=== PATIENT | female | born 1945 ===

== ENCOUNTER 2016-05-14 16:19 | Inpatient (IN) | payer MEDICAID ==
[2016-05-14 16:34] VITALS: BMI 22.3
[2016-05-14] MEDS ORDERED: Sodium Chloride 0.9% 1,000 ML IV STA (16:51)
--- NOTE | 2016-05-14 16:52 | ED PDOC ---
Arrival/HPI - General Chief Complaint: Dizziness/Lightheaded Time Seen by Provider: 05/14/16 16:49 Historian: Family - History of Present Illness Narrative History of Present Illness (Text): 05/14/16 17:00 Keira Morgan, a 71 year old female, presents to the emergency department complaining of near syncope over the past 3-4 days. She states she feels like passing out and has had frequent falls. She denies head trauma or loss of consciousness. Television Camera Operator reports patient has been shaking in her extremities and complaining of generalized weakness. Patient denies any headache, fevers, nausea, vomiting or any other complaints at this time. PMD: Dr Garvin Time/Duration: < week Symptom Onset: Gradual Symptom Course: Unchanged Activities at Onset: Light Context: Home Associated Symptoms (Text): none Past Medical History - Provider Review Nursing Documentation Reviewed: Yes - Past History Past History: No Previous - Infectious Disease Hx of Infectious Diseases: None - Tetanus Immunization Tetanus Immunization: Unknown - Reproductive Menopause: Yes - Past Medical History Past Medical History: No Previous - Cardiac Hx Cardiac Disorders: Yes Hx Hypertension: Yes - Pulmonary Hx Asthma: Yes - Neurological Other/Comment: abn ct head - HEENT Hx HEENT Disorder: No - Renal Hx Renal Disorder: No - Endocrine/Metabolic Hx Endocrine Disorders: No - Hematological/Oncological Hx Blood Disorders: No - Integumentary Hx Dermatological Disorder: Yes (MULTIPLE BROWN SPOTTING TO RIGHT THIGH AND BUTTOCKS AND BACK.) - Musculoskeletal/Rheumatological Hx Falls: Yes (fell 3x's today) - Gastrointestinal Hx Gastrointestinal Disorders: Yes (CONSTIPATION) - Genitourinary/Gynecological Hx Genitourinary Disorders: No - Psychiatric Hx Psychophysiologic Disorder: No Hx Substance Use: No - Past Surgical History Past Surgical History: No Previous - Surgical History Hx Hysterectomy: Yes (1996) - Anesthesia Hx Anesthesia: No Hx Anesthesia Reactions: No Hx Malignant Hyperthermia: No - Suicidal Assessment Feels Threatened In Home Enviroment: No Family/Social History - Physician Review Nursing Documentation Reviewed: Yes Family/Social History: No Known Family HX Smoking Status: Never Smoked Hx Alcohol Use: No Hx Substance Use: No Hx Substance Use Treatment: No Allergies/Home Meds Allergies/Adverse Reactions: Allergies No Known Allergies Allergy (Verified 07/08/15 14:06) Home Medications: Home Meds Medication Instructions Recorded Confirmed Mometasone/Formoterol [Dulera] 2 puff IH Q12H 05/14/16 05/14/16 Review of Systems - Physician Review All systems were reviewed & negative as marked: Yes Physical Exam - Physical Exam Narrative Physical Exam (Text): - Review of Systems Constitutional: Generalized weakness absent: Fatigue, Weight Change, Fevers Eyes: Normal ENT: Normal Respiratory: Normal absent: SOB, Cough, Sputum Cardiovascular: Near syncope absent: Chest pain, Palpitations, syncope Gastrointestinal: Normal absent: Abdominal pain, Diarrhea, Nausea, Vomiting Genitourinary: Normal. absent: Dysuria, Frequency, Hematuria Musculoskeletal: Shaking extremities. absent: Arthralgias, Back Pain, Neck Pain Skin: Normal Neurological: Normal absent: Focal Weakness Endocrine: Normal Hemo/Lymphatic: Normal Psychiatric: Normal - Physical exam Patient appears age appropriate, speaking full sentences without difficulty Head atraumatic. No nasal bone deformity or tenderness, no facial or jaw pain/ swelling. No neck midline tenderness, thoracic and lumbar spine with no midline tenderness. Pt moving b/l upper and lower extremities without difficulty, 5/5 strength, with full active and passive ROM. Distal neurovasc fully intact. Abd soft/nt/ng, no hematomas, no peritoneal signs. Neg. pelvic rock. - Systems Exam Head: Present: Atraumatic, Normocephalic Pupils: Present: PERRL Extraocular Muscles: Present: EOMI Conjunctiva: Present: Normal Mouth: Present: Moist Mucous Membranes Neck: Present: Normal Range of Motion. No: MIDLINE TENDERNESS, Paraspinal Tenderness Respiratory/Chest: Present: Clear to Auscultation, Good Air Exchange. No: Respiratory Distress, Accessory Muscle Use, Tachypneic Cardiovascular: Present: Regular Rate and Rhythm, Normal S1, S2, Peripheral Pulses Present. No: Murmurs Abdomen: Present: Normal Bowel Sounds, No: Tenderness, Peritoneal Signs, Rebound, Guarding, Distention Back: Present: Normal Inspection. No: Midline Tenderness, Paraspinal Tenderness Upper Extremity: Present: Normal Inspection. No: Cyanosis, Edema Lower Extremity: Present: Normal Inspection. No: Edema Neurological: Present: GCS=15, Speech Normal, cranial nerves II through XII fully intact with no cerebellar abnormality, neuro-sensory fully intact. No focal neurological deficits. Skin: Present: Warm, Dry, Normal Color. No: Rashes Lymphatic: Present: OX3, NI, NC Psychiatric: Present: Alert, Oriented x 3, Normal Insight, Normal Concentration 05/14/16 18:00 Vital Signs Reviewed: Yes Vital Signs Temp Pulse Resp BP Pulse Ox 05/14/16 20:44 98 F 79 19 136/96 H 05/14/16 20:27 75 16 143/87 97 05/14/16 19:14 79 19 136/96 H 99 05/14/16 19:00 136/96 H 05/14/16 17:45 98 F 87 19 143/91 H 98 05/14/16 16:34 99.2 F 78 16 110/65 92 L Temperature: Afebrile Blood Pressure: Normal Pulse: Regular Respiratory Rate: Normal Appearance: Positive for: Well-Appearing, Non-Toxic, Comfortable Pain Distress: None Mental Status: Positive for: Alert and Oriented X 3 Medical Decision Making ED Course and Treatment: 05/14/16 17:06 Impression: 71 year old female presents to emergency department complaining of near syncope over the past few days. On physical exam, patient has no acute findings. Differential Diagnosis included but are not limited to: near syncope vs dehydration Plan: -- Head CT w/o contrast -- EKG -- Labs -- IV Fluids -- Urinalysis -- Reassess and disposition Prior Visits: On 03/21/16 patient was discharged after being admitted for tremors and falls. Progress Notes: EKG shows NSR at [address]-segment elevations, normal intervals. Interpreted by me. Chest X-ray Patient Ambassador : Alvaro Escobar MD IMPRESSION: Mild vascular congestion. X-ray read noted, BNP ordered. CT Head w/o contrast IMPRESSION: No acute intracranial abnormality Dictated and Authenticated by: Vandana Burns MD 05/14/16 19:27 BNP elevated troponin 0.09. Pt denies cp asa ordered dw and signed out to Dr. Pickens, accepted admission to tele pt in no distress aware of and agrees with plan Television Camera Operator translating encounter per pt request - Lab Interpretations Microbiology Results: Microbiology Results 05/14/16 16:45 Blood-Venous Blood Culture - Preliminary NO GROWTH AFTER 4 DAYS 05/14/16 16:50 Blood-Venous Blood Culture - Preliminary NO GROWTH AFTER 4 DAYS 05/14/16 18:10 Urine Urine Culture - Final Gram Positive Cocci Lab Results: 05/14/16 16:50 04/08/17 16:50 Lab Results 05/14/16 18:10: Urine Color Yellow, Urine Appearance Slight-cloudy, Urine pH 6.0 , Ur Specific [place] 1.025, Urine Protein 30 H, Urine Glucose (UA) Negative, Urine Ketones Negative, Urine Blood Small H, Urine Nitrate Negative, Urine Bilirubin Negative, Urine Urobilinogen 0.2, Ur Leukocyte Esterase Trace H, Urine RBC 2 - 5, Urine WBC 1 - 3, Ur Epithelial Cells 1 - 3, Urine Bacteria Few 05/14/16 16:50: WBC 7.3, RBC 5.00, Hgb 12.4, Hct 41.9, MCV 83.8, MCH 24.8 L, MCHC 29.6 L, RDW 14.8 H, Plt Count 222, MPV 10.7, Gran % 66.8, Lymph % (Auto) 23.4, [place] % (Auto) 9.3 H, Eos % (Auto) 0.4 L, Baso % (Auto) 0.1, Gran # 4.88, Lymph # 1.7, [place] # 0.7 H, Eos # 0.0, Baso # 0.01, PT 11.7, INR 1.08, APTT 25.2 , Sodium 136, Potassium 5.2 H, Chloride 91 L, Carbon Dioxide 45 H, Anion Gap 5 L , BUN 19, Creatinine 0.8, Est GFR ( Amer) > 60, Est GFR (Non-Af Amer) > 60, Random Glucose 96, Calcium 8.4, Phosphorus 3.7, Magnesium 2.1, Total Bilirubin 0.4, AST 258 H, ALT 276 H, Alkaline Phosphatase 85, Lactate Dehydrogenase 1051 H, Total Creatine Kinase 41, Troponin I 0.09 D, NT-Pro-B Natriuret Pep 3820 H, Total Protein 7.4, Albumin 3.8, Globulin 3.7, Albumin/ Globulin Ratio 1.0 L - RAD Interpretation Radiology Orders: 05/14/16 16:51 HEAD W/O CONTRAST [CT] Stat CHEST PORTABLE [RAD] Stat - EKG Interpretation Interpreted by ED Physician: Yes Type: 12 lead EKG - Medication Orders Current Medication Orders: Discontinued Medications Albuterol/Ipratropium (Duoneb 3 Mg/0.5 Mg (3 Ml) Ud) 3 ml IH Q6 PRN PRN Reason: Shortness of Breath Stop: 05/15/16 12:01 Albuterol/Ipratropium (Duoneb 3 Mg/0.5 Mg (3 Ml) Ud) 3 ml IH [id number] [facility] Last Admin: 05/18/16 15:35 Dose: 3 ML Aspirin (Aspirin Chewable) 324 mg PO STAT STA Stop: 05/14/16 19:12 Last Admin: 05/14/16 19:31 Dose: 324 MG Aspirin (Aspirin Chewable) 81 mg PO DAILY [facility] Last Admin: 05/18/16 10:20 Dose: 81 MG Benzonatate (Tessalon Perles) 100 mg PO TID [facility] Last Admin: 05/18/16 17:39 Dose: 100 MG Fluticasone Propionate (Flonase) 1 actuation NS BID [facility] Last Admin: 05/18/16 17:40 Dose: 1 SPR Furosemide (Lasix) 40 mg IVP STAT STA Stop: 05/14/16 18:48 Last Admin: 05/14/16 19:00 Dose: 40 MG MAR Blood Pressure Document 05/14/16 19:00 GMI (Rec: 05/14/16 19:05 GMI [id number]) Blood Pressure Blood Pressure (100/60-150/90) 136/96 IVP Administration Document 05/14/16 19:00 GMI (Rec: 05/14/16 19:05 GMI [id number]) Charges for Administration # of IVP Administrations 1 Sodium Chloride (Sodium Chloride 0.9%) 1,000 mls @ 1,000 mls/hr IV .Q1H STA Stop: 05/14/16 17:50 Last Admin: 05/14/16 17:37 Dose: 1,000 MLS/HR eMAR Start Stop Document 05/14/16 17:37 GMI (Rec: 05/14/16 17:37 GMI [id number]) Intravenous Solution Start Date 05/14/16 Start Time 17:15 Sodium Chloride (Sodium Chloride 0.9%) 1,000 mls @ 100 mls/hr IV .Q10H [facility] Last Admin: 05/15/16 07:30 Dose: 100 MLS/HR eMAR Start Stop Document 05/15/16 07:30 ANE (Rec: 05/15/16 08:38 ANE [id number]) Intravenous Solution Start Date 05/15/16 Start Time 07:30 Sodium Chloride (Sodium Chloride 0.9%) 1,000 mls @ 150 mls/hr IV .Q6H40M [facility] Last Admin: 05/16/16 01:00 Dose: 150 MLS/HR eMAR Start Stop Document 05/16/16 01:00 CDE (Rec: 05/16/16 06:39 CDE [id number]) Intravenous Solution Start Date 05/16/16 Start Time 01:00 Levofloxacin (Levaquin) 750 mg PO DAILY [facility] Last Admin: 05/17/16 09:49 Dose: 750 MG Levofloxacin (Levaquin) 750 mg PO ONCE ONE Stop: 05/16/16 13:51 Last Admin: 05/16/16 14:13 Dose: 750 MG Pantoprazole Sodium (Protonix Inj) 40 mg IVP DAILY [facility] Last Admin: 05/16/16 09:33 Dose: 40 MG IVP Administration Document 05/16/16 09:33 RDS (Rec: 05/16/16 09:34 RDS [id number]) Charges for Administration # of IVP Administrations 1 Pantoprazole Sodium (Protonix Ec Tab) 40 mg PO ACB [facility] Last Admin: 05/18/16 10:20 Dose: 40 MG Pneumococcal Polyvalent Vaccine (Pneumovax 23 Vaccine) 0.5 ml IM .ONCE ONE Stop: 05/14/16 20:56 Primidone (Mysoline) 50 mg PO HS [facility] Last Admin: 05/17/16 21:45 Dose: 50 MG Sodium Polystyrene Sulfonate (Kayexalate Oral Susp) 30 gm PO STAT STA Stop: 05/14/16 20:13 Last Admin: 05/14/16 20:24 Dose: 30 GM Tetanus/Reduced Diphtheria/Acell Pertussis (Boostrix Vaccine Inj) 0.5 ml IM .ONCE ONE Stop: 05/14/16 20:29 Last Admin: 05/15/16 00:28 Dose: 0.5 ML MAR Immunization Data Document 05/15/16 00:28 KETTY (Rec: 05/15/16 00:34 [place] [facility] [id number] Immunization Data Opt out of sending immunization data to Yes respository? Vaccine Lot Number [id number] - [employer]hem[employer] Statement The provider has reviewed the documentation as recorded by the [employer] [place] training under Carlos Call All medical record entries made by the [place] were at my direction and personally dictated by me. I have reviewed the chart and agree that the record accurately reflects my personal performance of the history, physical exam, medical decision making, and the department course for this patient. I have also personally directed, reviewed, and agree with the discharge instructions and disposition. Disposition/Present on Arrival - Present on Arrival Any Indicators Present on Arrival: No History of DVT/PE: No History of Uncontrolled Diabetes: No Urinary Catheter: No History of Decub. Ulcer: No History Surgical Site Infection Following: None - Disposition Have Diagnosis and Disposition been Completed?: Yes Diagnosis: CHF (congestive heart failure) Disposition: HOSPITALIZED Disposition Time: 19:28 Patient Plan: Admission Patient Problems: Current Active Problems Problem Status Diagnosed Intractable back pain Acute Multiple transverse process fractures Acute Tremor Acute Unsteady gait Acute Condition: GOOD
[2016-05-14 17:05] LABS: ADD MANUAL DIFF? NO
[2016-05-14 17:09] LABS: BASO # 0.01 K/mm3 (0.0-2.0); BASO % 0.1 % (0.0-3.0); EOS % 0.4 % (1.5-5.0); GRAN # 4.88 (1.4-6.5); GRAN % 66.8 % (50.0-68.0); HEMATOCRIT 41.9 % (36.0-48.0); LYMPH # 1.7 (1.2-3.4); LYMPH % 23.4 % (22.0-35.0); MEAN CELL VOLUME 83.8 fL (80.0-105.0); MEAN CORPUSCULAR HEMOGLOBIN 24.8 pg (25.0-35.0); MEAN CORPUSCULAR HGB CONC 29.6 g/dl (31.0-37.0); MEAN PLATELET VOLUME 10.7 fl (7.0-11.0); MONO # 0.7 (0.1-0.6); MONO % 9.3 % (1.0-6.0); PLATELET COUNT 222 10^3/uL (120.0-450.0); RED CELL DISTRIBUTION WIDTH 14.8 % (11.5-14.5); WHITE BLOOD COUNT 7.3 10^3/ul (4.5-11.0)
[2016-05-14 17:20] LABS: INR 1.08 (0.93-1.08); PARTIAL THROMBOPLASTIN TIME 25.2 Seconds (23.7-30.8)
--- NOTE | 2016-05-14 17:27 | RAD ---
HISTORY: cough COMPARISON: 03/19/2016 FINDINGS: LUNGS: No focal consolidation PLEURA: No significant pleural effusion identified, no pneumothorax apparent. CARDIOVASCULAR: There is some vascular congestion right greater than left. The heart is normal in size OSSEOUS STRUCTURES: No significant abnormalities. VISUALIZED UPPER ABDOMEN: Normal. OTHER FINDINGS: None. IMPRESSION: Mild vascular congestion.
[2016-05-14 17:28] LABS: ALKALINE PHOSPHATASE 85 U/L (38-133); ALT/SGPT 276 U/L (7-56); AST/SGOT 258 U/L (15-39); BILIRUBIN,TOTAL 0.4 mg/dL (0.2-1.3); BLOOD UREA NITROGEN 19 mg/dL (7-21); CALCIUM 8.4 mg/dL (8.4-10.5); CHLORIDE 91 mmol/L (98-107); GFR AFRICAN-AMERICAN > 60; GLUCOSE,RANDOM 96 mg/dL (70-110); POTASSIUM 5.2 mmol/L (3.6-5.0); SODIUM 136 mmol/L (132-148); TOTAL PROTEIN 7.4 g/dL (5.8-8.3)
[2016-05-14 17:38] LABS: TROPONIN I 0.09 ng/mL
[2016-05-14 17:39] LABS: CARBON DIOXIDE 45 mmol/L (21-33)
[2016-05-14 18:19] LABS: URINE BILIRUBIN NEGATIVE (NEGATIVE); URINE BLOOD SMALL (NEGATIVE); URINE GLUCOSE (UA) NEGATIVE (NEGATIVE); URINE KETONE NEGATIVE (NEGATIVE); URINE LEUKOCYTE ESTERASE TRACE Leu/uL (NEGATIVE); URINE PROTEIN 30 mg/dL (<30 mg/dL); URINE UROBILINOGEN 0.2 E.U./dL (<1 E.U./dL)
[2016-05-14 18:39] LABS: URINE APPEARANCE SLIGHT-CLOUDY (CLEAR); URINE COLOR YELLOW (YELLOW)
[2016-05-14 18:40] LABS: URINE BACTERIA FEW (NEG)
--- NOTE | 2016-05-14 19:02 | CT ---
EXAM: CT Head Without Intravenous Contrast CLINICAL HISTORY: 71 years old, female; Signs and symptoms; Syncope and collapse; Additional info: Near syncope TECHNIQUE: Axial computed tomography images of the head/brain without intravenous contrast. This CT exam was performed using one or more of the following dose reduction techniques: automated exposure control, adjustment of the mA and/or kV according to patient size, and/or use of iterative reconstruction technique. EXAM DATE/TIME: 05/14/2016 4:51 PM COMPARISON: CT - HEAD W/O CONTRAST 03/19/2016 12:59:22 PM FINDINGS: Brain: Ventricles are normal in size and configuration. There is no midline shift. There are no intra-axial or extra-axial mass lesions or areas of hemorrhage. There are no abnormal fluid collections. Angel-white differentiation is maintained. Ventricles: See above. Bones: Cranial vault is intact. Soft tissues: unremarkable Sinuses: There is no acute sinusitis. Ears and mastoids: Middle ears and mastoids are unremarkable. There is streak artifact from earrings Orbits: Orbital contents are unremarkable. IMPRESSION: No acute intracranial abnormality
[2016-05-14] MEDS ORDERED: Albuterol-Ipratrop 3 mg / 0.5 (3 ml) UD IH PRN (20:05)
[2016-05-14] MEDS ORDERED: Sod Polystyrene Sulf 15 gm/60 ml Oral Susp PO STA (20:12)
--- NOTE | 2016-05-14 20:18 | CP.PCM.HP ---
<Jakub Mcgowan - Last Filed: 05/14/16 20:33> History of Present Illness - History of Present Illness History of Present Illness: This is a 71 yo female with past medical hx of back pain, gait instability, essential tremor, asthma presenting with near syncope and fall. Pt was admitted in March for similar issue. She frequently feels "shaky" upon standing and says this has been going on for a year. She does not say she feels dizzy or lightheaded. She says she fell at home twice today. She attributes this to not eating enough. She experience no aura or prodrome prior to falling. She denies hitting her head or LOC. She denies seizure activity or tongue biting. She denies bowel or bladder incontinence. She says the shakiness and unsteadiness comes and goes. She reports some chest pain, substernal, no radiation, that developed while she was lying in bed in ER. It is gone at time of evaluation. She reports a cough with white phlegm that has been going on for a while. She was given abx but they have not helped. Denies shortness of breath, urinary sx, blood in BMs. PMH: Asthma, back pain, gait instability, essential tremor PSH: Hysterectomy Allergies: NKDA FH: Non contributory Social hx: Denies smoking, drinking, drug use. Lives in [place]. From [place]. Lives with sister and grandson. Does not use cane and walker and able to take care of herself and perform ADLs. Present on Admission - Present on Admission Any Indicators Present on Admission: No History of DVT/PE: No History of Uncontrolled Diabetes: No Urinary Catheter: No Decubitus Ulcer Present: No Review of Systems - Review of Systems All systems: reviewed and no additional remarkable complaints except Review of Systems: Negative except as stated in HPI Past Patient History - Infectious Disease Hx of Infectious Diseases: None - Tetanus Immunizations Tetanus Immunization: Unknown - Past Medical History & Family History Past Medical History?: Yes Past Family History: Reviewed and not pertinent - Past Social History Smoking Status: Never Smoked Chewing Tobacco Use: No Cigar Use: No Alcohol: None Drugs: Denies Home Situation {Lives}: With Family Domestic Violence: Negative - CARDIAC Hx Cardiac Disorders: Yes Hx Hypertension: Yes - PULMONARY Hx Asthma: Yes - NEUROLOGICAL Other/Comment: abn ct head - HEENT Hx HEENT Problems: No - RENAL Hx Chronic Kidney Disease: No - ENDOCRINE/METABOLIC Hx Endocrine Disorders: No - HEMATOLOGICAL/ONCOLOGICAL Hx Blood Disorders: No - INTEGUMENTARY Hx Dermatological Problems: Yes (MULTIPLE BROWN SPOTTING TO RIGHT THIGH AND BUTTOCKS AND BACK.) - MUSCULOSKELETAL/RHEUMATOLOGICAL Hx Falls: Yes (fell 3x's today) - GASTROINTESTINAL Hx Gastrointestinal Disorders: Yes (CONSTIPATION) - GENITOURINARY/GYNECOLOGICAL Hx Genitourinary Disorders: No - PSYCHIATRIC Hx Psychophysiologic Disorder: No Hx Substance Use: No - SURGICAL HISTORY Hx Hysterectomy: Yes (1996) - ANESTHESIA Hx Anesthesia: No Hx Anesthesia Reactions: No Hx Malignant Hyperthermia: No Meds Allergies/Adverse Reactions: Allergies Allergy/AdvReac Type Severity Reaction Status Date / Time No Known Allergies Allergy Verified 07/08/15 14:06 Physical Exam - Constitutional Appears: Non-toxic, No Acute Distress - Head Exam Head Exam: ATRAUMATIC, NORMAL INSPECTION, NORMOCEPHALIC - Eye Exam Eye Exam: EOMI - ENT Exam ENT Exam: Mucous Membranes Moist - Neck Exam Neck exam: Positive for: Normal Inspection - Respiratory Exam Respiratory Exam: absent: Accessory Muscle Use, Respiratory Distress - Cardiovascular Exam Cardiovascular Exam: REGULAR RHYTHM, +S1, +S2 - GI/Abdominal Exam GI & Abdominal Exam: Normal Bowel Sounds, Soft. absent: Tenderness - Extremities Exam Extremities exam: Positive for: normal inspection - Neurological Exam Neurological exam: Alert, CN II-XII Intact, Oriented x3 - Psychiatric Exam Psychiatric exam: Normal Affect, Normal Mood - Skin Skin Exam: Dry, Intact, Normal Color, Warm Results - Vital Signs Recent Vital Signs: Last Vital Signs Temp 98 F 05/14/16 17:45 Pulse 79 05/14/16 19:14 Resp 19 05/14/16 19:14 BP 136/96 H 05/14/16 19:14 Pulse Ox 99 05/14/16 19:14 - Labs Result Diagrams: 05/14/16 16:50 05/14/16 16:50 Assessment & Plan - Assessment and Plan (Free Text) Assessment: This is a 71 yo female with past medical hx of back pain, gait instability, asthma presenting with fall and near syncope. 1. Near syncope -EKG shows NSR -repeat EKG in am -1st trop indeterminate, serial cardiac enzymes -ASA 81 daily -CXR shows some vascular congestion -lasix 40 daily -blood/urine cultures -urine drug screen -Mg pending -phos pending -echo in Mar shows normal LV fx -carotid dopplers pending -cardio/neuro consultations -head CT negative -orthostatic vital signs -PT evaluation -high risk fall precautions 2. Hx of essential tremor -continue primodone -neuro consultation 3. Transaminitis -trend liver enzymes -hepatitis panel 4. hx of asthma -duonebs prn 5. hx of cough -continue flonase -continue tessalon perles 6. hyperkalemia -we will give kayexalate -no ekg changes 7. GI/DVT ppx -protonix daily -SCDs -to be discussed with Dr. Pickens <Germán Pickens - Last Filed: 05/15/16 02:18> Results - Vital Signs Recent Vital Signs: Last Vital Signs Temp 97.8 F 05/15/16 00:01 Pulse 69 05/15/16 00:01 Resp 20 05/15/16 00:01 BP 98/56 L 05/15/16 00:01 Pulse Ox 97 05/15/16 00:01 - Labs Result Diagrams: 05/14/16 16:50 05/14/16 16:50 Labs: Laboratory Results - last 24 hr 05/14/16 05/15/16 22:00 00:50 Troponin I 0.09 Influenza Typ A,B (EIA) Negative for flu a/b Attending/Attestation - Attestation I have personally seen and examined this patient.: Yes I have fully participated in the care of the patient.: Yes I have reviewed all pertinent clinical information: Yes Notes (Text): 05/15/16 02:17 Patient was seen when she was in room # 864 -01. Agree with history , physical examination, assessment and plan.
[2016-05-14] MEDS ORDERED: TDAP Vaccine 0.5 mL Syr IM ONE (20:28)
[2016-05-14 20:34] LABS: MAGNESIUM 2.1 mg/dL (1.7-2.2); PHOSPHOROUS 3.7 mg/dL (2.5-4.5)
--- NOTE | 2016-05-14 20:53 | CT ---
EXAM: CT Head Without Intravenous Contrast CLINICAL HISTORY: 71 years old, female; Injury or trauma; Fall; Initial encounter; Concussion / head injury TECHNIQUE: Axial computed tomography images of the head/brain without intravenous contrast. This CT exam was performed using one or more of the following dose reduction techniques: automated exposure control, adjustment of the mA and/or kV according to patient size, and/or use of iterative reconstruction technique. EXAM DATE/TIME: 05/14/2016 8:23 PM COMPARISON: CT - HEAD W/O CONTRAST 05/14/2016 6:09:18 PM FINDINGS: Brain: Ventricles are normal in size and configuration. There is no midline shift. There are no intra-axial or extra-axial mass lesions or areas of hemorrhage. There are no abnormal fluid collections. Angel-white differentiation is maintained. Ventricles: See above. Bones: Cranial vault is intact. Soft tissues: unremarkable Sinuses: There is no acute sinusitis. Ears and mastoids: Middle ears and mastoids are unremarkable. There is streak artifact from earrings Orbits: Orbital contents are unremarkable. IMPRESSION: No acute intracranial abnormality
[2016-05-14] MEDS ORDERED: Pneumococcal 23-Valent Vaccine IM ONE (20:55)
[2016-05-15] MEDS ORDERED: Sodium Chloride 0.9% 1,000 ML IV SCH (07:30)
--- NOTE | 2016-05-15 08:58 | RAD ---
PROCEDURE: Left Knee Radiographs. HISTORY: Pain. COMPARISON: None. FINDINGS: BONES: Normal. No fracture. JOINTS: Normal. No osteoarthritis. JOINT EFFUSION: None. OTHER FINDINGS: None. IMPRESSION: Normal radiographs of the left knee.
--- NOTE | 2016-05-15 09:03 | CP.PCM.CON ---
<Aman Chiu - Last Filed: 05/15/16 09:06> History of Present Illness - History of Present Illness History of Present Illness: PGY4 GI Fellow Consult Note Patient is a 71yo female with PMHx significant for multiple Lumbar spine fractures (L2-4), multiple falls who presented to the ED following a fall at home. The patient is not able to describe this event in great detail. States that she felt unsteady, that her whole body felt "shaky" and that she subsequently fell. She denies hitting her head, LOC/confusion following fall and had no preceding symptoms such as dizziness/lightheadedness/flushing/nausea/ vomiting. She cannot recall exactly what she was doing when she did fall but denies having used the restroom or standing from sitting/laying prior to the event. Reviewing her EMR, it is noted that she has had numerous falls previously and prior brain imaging has been relatively unremarkable. Of note, she is on Primidone at home, an antiseizure medication. Our service has been consulted as she has abnormal LFTs for the first time. She denies any EtOH use and is unsure about any prior history of hepatitis. She denies any known liver disease. PMHx: Denies, though review of home medications seem to suggest Seizure d/o and COPD PSHx: Denies FHx: Denies Social: Denies tobacco, EtOH or illicit drug use Endo: Admits to colonoscopy >10 years ago, unknown results Review of Systems - Constitutional Constitutional: Frequent Falls. absent: Anorexia, Chills - EENT Eyes: absent: Change in Vision Nose/Mouth/Throat: absent: Sore Throat - Cardiovascular Cardiovascular: absent: Chest Pain, Dyspnea, Dyspnea on Exertion - Respiratory Respiratory: absent: Cough, Dyspnea, Change in Mucous Color - Gastrointestinal Gastrointestinal: absent: Abdominal Pain, Constipation, Cramping, Diarrhea, Dyspepsia, Dysphagia, Hematemesis, Hematochezia, Loose Stools, Nausea, Vomiting - Genitourinary Genitourinary: absent: Dysuria, Urinary Frequency, Urinary Urgency - Musculoskeletal Musculoskeletal: absent: Back Pain, Neck Pain - Integumentary Integumentary: absent: New Lesions, Rash - Neurological Neurological: absent: Dizziness, Numbness, Focal Weakness - Psychiatric Psychiatric: absent: Anxiety, Depression - Endocrine Endocrine: absent: Polydipsia, Polyphagia, Polyuria - Hematologic/Lymphatic Hematologic: absent: Easy Bleeding, Easy Bruising, Lymphadenopathy Past Patient History - Infectious Disease Hx of Infectious Diseases: None - Tetanus Immunizations Tetanus Immunization: Unknown - Past Medical History & Family History Past Medical History?: Yes Past Family History: Reviewed and not pertinent - Past Social History Smoking Status: Never Smoked - CARDIAC Hx Cardiac Disorders: Yes Hx Hypertension: Yes - PULMONARY Hx Asthma: Yes - NEUROLOGICAL Other/Comment: abn ct head - HEENT Hx HEENT Problems: No - RENAL Hx Chronic Kidney Disease: No - ENDOCRINE/METABOLIC Hx Endocrine Disorders: No - HEMATOLOGICAL/ONCOLOGICAL Hx Blood Disorders: No - INTEGUMENTARY Hx Dermatological Problems: Yes (MULTIPLE BROWN SPOTTING TO RIGHT THIGH AND BUTTOCKS AND BACK.) - MUSCULOSKELETAL/RHEUMATOLOGICAL Hx Falls: Yes (fell 3x's today) - GASTROINTESTINAL Hx Gastrointestinal Disorders: Yes (CONSTIPATION) - GENITOURINARY/GYNECOLOGICAL Hx Genitourinary Disorders: No - PSYCHIATRIC Hx Psychophysiologic Disorder: No Hx Substance Use: No - SURGICAL HISTORY Hx Hysterectomy: Yes (1996) - ANESTHESIA Hx Anesthesia: No Hx Anesthesia Reactions: No Hx Malignant Hyperthermia: No Meds Allergies/Adverse Reactions: Allergies Allergy/AdvReac Type Severity Reaction Status Date / Time No Known Allergies Allergy Verified 07/08/15 14:06 - Medications Medications: Current Medications Albuterol/Ipratropium (Duoneb 3 Mg/0.5 Mg (3 Ml) Ud) 3 ml IH Q6 PRN PRN Reason: Shortness of Breath Stop: 05/15/16 12:01 Aspirin (Aspirin Chewable) 81 mg PO DAILY [facility] Benzonatate (Tessalon Perles) 100 mg PO TID [facility] Fluticasone Propionate (Flonase) 1 actuation NS BID [facility] Sodium Chloride (Sodium Chloride 0.9%) 1,000 mls @ 100 mls/hr IV .Q10H [facility] Last Admin: 05/15/16 07:30 Dose: 100 mls/hr Pantoprazole Sodium (Protonix Inj) 40 mg IVP DAILY [facility] Primidone (Mysoline) 50 mg PO HS [facility] Last Admin: 05/15/16 00:37 Dose: 50 mg Physical Exam - Constitutional Appears: Non-toxic, No Acute Distress - Eye Exam Eye Exam: EOMI, PERRL - ENT Exam ENT Exam: Mucous Membranes Moist - Respiratory Exam Respiratory Exam: Clear to Auscultation Bilateral. absent: Rales, Rhonchi, Wheezes - Cardiovascular Exam Cardiovascular Exam: RRR, +S1, +S2 - GI/Abdominal Exam GI & Abdominal Exam: Normal Bowel Sounds, Soft. absent: Distended, Firm, Guarding, Rigid, Tenderness - Extremities Exam Extremities exam: Positive for: normal inspection. Negative for: pedal edema - Neurological Exam Neurological exam: Alert, Oriented x3 - Psychiatric Exam Psychiatric exam: Normal Affect, Normal Mood - Skin Skin Exam: Dry, Warm Results - Vital Signs Recent Vital Signs: Last Vital Signs Temp 97.9 F 05/15/16 05:37 Pulse 72 05/15/16 05:37 Resp 20 05/15/16 05:37 BP 112/58 L 05/15/16 05:37 Pulse Ox 99 05/15/16 05:37 - Labs Result Diagrams: 05/14/16 16:50 05/14/16 16:50 Labs: Laboratory Results - last 24 hr 05/14/16 05/15/16 22:00 00:50 Troponin I 0.09 Influenza Typ A,B (EIA) Negative for flu a/b Assessment & Plan - Assessment and Plan (Free Text) Assessment: Patient is a 71yo female with PMHx significant for multiple Lumbar spine fractures (L2-4), multiple falls who presented to the ED following a fall at home. Our service has been consulted for abnormal LFTs. -Transaminasemia -Frequent falls Plan: -U/S abdomen -Hepatitis serologies -Autoimmune work up: TRINITY, AMA, SMA -Suspect elevation could be related to transient hypotension preceding/causing fall however given history of seizure disorder and patient's description of "shaking", consider elevations 2/2 seizure activity/muscle damage as LDH elevated as well -Consider neurology evaluation given frequent falls and h/o unsteady gait - CT head reviewed; pt may benefit from EEG or further neurologic work up -Fall precautions - Date & Time Date: 05/15/16 Time: 08:10 <Earle Walsh MD - Last Filed: 05/15/16 18:18> Meds - Medications Medications: Current Medications Aspirin (Aspirin Chewable) 81 mg PO DAILY [facility] Last Admin: 05/15/16 10:31 Dose: 81 mg Benzonatate (Tessalon Perles) 100 mg PO TID [facility] Last Admin: 04/09/17 17:36 Dose: 100 mg Fluticasone Propionate (Flonase) 1 actuation NS BID [facility] Last Admin: 05/15/16 17:33 Dose: 1 spr Sodium Chloride (Sodium Chloride 0.9%) 1,000 mls @ 150 mls/hr IV .Q6H40M [facility] Last Admin: 05/15/16 17:34 Dose: 150 mls/hr Pantoprazole Sodium (Protonix Inj) 40 mg IVP DAILY [facility] Last Admin: 05/15/16 10:34 Dose: 40 mg Primidone (Mysoline) 50 mg PO HS [facility] Last Admin: 05/15/16 00:37 Dose: 50 mg Results - Vital Signs Recent Vital Signs: Last Vital Signs Temp 98 F 05/15/16 12:00 Pulse 74 05/15/16 14:00 Resp 20 05/15/16 12:00 BP 104/62 05/15/16 12:00 Pulse Ox 99 05/15/16 05:37 - Labs Result Diagrams: 05/14/16 16:50 05/15/16 09:50 Labs: Laboratory Results - last 24 hr 05/14/16 05/15/16 05/15/16 22:00 00:50 09:05 PT 11.5 INR 1.06 pCO2 pO2 HCO3 ABG pH ABG Total CO2 ABG O2 Saturation ABG O2 Content ABG Base Excess ABG Hemoglobin ABG Carboxyhemoglobin POC ABG HHb (Measured) ABG Methemoglobin ABG O2 Capacity Hgb O2 Saturation FiO2 Sodium Potassium Chloride Carbon Dioxide Anion Gap BUN Creatinine Est GFR ( Amer) Est GFR (Non-Af Amer) Random Glucose Calcium Total Bilirubin AST ALT Alkaline Phosphatase Troponin I 0.09 Total Protein Albumin Globulin Albumin/Globulin Ratio Influenza Typ A,B (EIA) Negative for flu a/b 05/15/16 05/15/16 09:50 15:55 PT INR pCO2 87 H* pO2 73.0 L HCO3 49.1 H* ABG pH 7.36 ABG Total CO2 51.8 H ABG O2 Saturation 97.0 ABG O2 Content 15.1 ABG Base Excess 19.6 H ABG Hemoglobin 11.4 L ABG Carboxyhemoglobin 2.0 H POC ABG HHb (Measured) 2.9 ABG Methemoglobin 1.1 ABG O2 Capacity 15.6 L Hgb O2 Saturation 94.0 L FiO2 32.0 Sodium 139 Potassium 3.6 Chloride 87 L Carbon Dioxide 51 H Anion Gap 5 L BUN 18 Creatinine 0.6 Est GFR ( Amer) > 60 Est GFR (Non-Af Amer) > 60 Random Glucose 96 Calcium 7.8 L Total Bilirubin 0.6 AST 165 H ALT 238 H Alkaline Phosphatase 75 Troponin I 0.07 D Total Protein 6.8 Albumin 3.5 Globulin 3.3 Albumin/Globulin Ratio 1.1 Influenza Typ A,B (EIA) Attending/Attestation - Attestation I have personally seen and examined this patient.: Yes I have fully participated in the care of the patient.: Yes I have reviewed all pertinent clinical information: Yes Notes (Text): 05/15/16 18:12 Patient seen and examined at bedside. This is a 71 yr old female with PMHx significant for multiple Lumbar spine fractures (L2-4), multiple falls who presented to the ED following a fall at home. Our service has been consulted for abnormal LFT mostly transminases which are down trending. Likely muscle injury with leaking of liver enzymes with LDH. Send myoglobin and CPK Neurology evaluation noted. Fall precautions
[2016-05-15 10:05] LABS: ALB/GLOB RATIO 1.1 (1.1-1.8); ALKALINE PHOSPHATASE 75 U/L (38-133); ALT/SGPT 238 U/L (7-56); AST/SGOT 165 U/L (15-39); BILIRUBIN,TOTAL 0.6 mg/dL (0.2-1.3); BLOOD UREA NITROGEN 18 mg/dL (7-21); CALCIUM 7.8 mg/dL (8.4-10.5); CHLORIDE 87 mmol/L (98-107); GFR AFRICAN-AMERICAN > 60; GLUCOSE,RANDOM 96 mg/dL (70-110); POTASSIUM 3.6 mmol/L (3.6-5.0); SODIUM 139 mmol/L (132-148); TOTAL PROTEIN 6.8 g/dL (5.8-8.3)
[2016-05-15 10:07] LABS: INR 1.06 (0.93-1.08)
[2016-05-15 10:16] LABS: TROPONIN I 0.07 ng/mL
[2016-05-15 10:17] LABS: CARBON DIOXIDE 51 mmol/L (21-33)
--- NOTE | 2016-05-15 10:29 | CP.PCM.PN ---
<ArchanageorgiaMarcus - Last Filed: 05/15/16 10:19> Subjective - Date & Time of Evaluation Date of Evaluation: 05/15/16 Time of Evaluation: 08:00 - Subjective Subjective: PGY-1 Medicine Progress Note for Dr. Britton Patient seen and examined at bedside. No acute vent overnight. Patient lying in bed comfortably. 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 Patient stated that she had not been sleeping at night over last several days. She admitted to bowel incontinence during the questionable syncopal episode. Patient has no other acute complaints. She is tolerating diet and having BM. Denied fever/chills, cp, sob, palpitations, abd pain, n/v/d, urinary symptoms. Objective - Vital Signs/Intake and Output Vital Signs (last 24 hours): Temp Pulse Resp BP Pulse Ox 97.9 F 72 20 112/58 L 99 05/15/16 05:37 05/15/16 05:37 05/15/16 05:37 05/15/16 05:37 05/15/16 05:37 Intake and Output: 05/15/16 05/15/16 06:59 18:59 Intake Total 600 Balance 600 - Medications Medications: Current Medications Albuterol/Ipratropium (Duoneb 3 Mg/0.5 Mg (3 Ml) Ud) 3 ml IH Q6 PRN PRN Reason: Shortness of Breath Stop: 05/15/16 12:01 Aspirin (Aspirin Chewable) 81 mg PO DAILY [facility] Benzonatate (Tessalon Perles) 100 mg PO TID [facility] Fluticasone Propionate (Flonase) 1 actuation NS BID [facility] Sodium Chloride (Sodium Chloride 0.9%) 1,000 mls @ 100 mls/hr IV .Q10H [facility] Last Admin: 05/15/16 07:30 Dose: 100 mls/hr Pantoprazole Sodium (Protonix Inj) 40 mg IVP DAILY [facility] Primidone (Mysoline) 50 mg PO HS [facility] Last Admin: 05/15/16 00:37 Dose: 50 mg - Labs Labs: 05/15/16 09:50 PT 11.5 Seconds (9.9-11.8) 05/15/16 09:05 INR 1.06 (0.93-1.08) 05/15/16 09:05 APTT 25.2 Seconds (23.7-30.8) 05/14/16 16:50 - Constitutional Appears: No Acute Distress - Head Exam Head Exam: ATRAUMATIC, NORMOCEPHALIC - Eye Exam Eye Exam: EOMI, Normal appearance Pupil Exam: PERRL - ENT Exam ENT Exam: Mucous Membranes Dry - Neck Exam Neck Exam: Normal Inspection - Respiratory Exam Respiratory Exam: Clear to Ausculation Bilateral, NORMAL BREATHING PATTERN - Cardiovascular Exam Cardiovascular Exam: REGULAR RHYTHM, +S1, +S2 - GI/Abdominal Exam GI & Abdominal Exam: Soft, Normal Bowel Sounds. absent: Tenderness - Extremities Exam Extremities Exam: Normal Capillary Refill Additional comments: abrasion on L knee - Back Exam Back Exam: absent: CVA tenderness (L), CVA tenderness (R) - Neurological Exam Neurological Exam: Alert, Awake, CN II-XII Intact, Oriented x3 - Psychiatric Exam Psychiatric exam: Normal Affect, Normal Mood - Skin Skin Exam: Abrasion (L knee), Dry, Normal Color, Warm Assessment and Plan - Assessment and Plan (Free Text) Plan: 1. Pre-syncopal episode EKG shows NSR Serial cardiac enzymes negative x 3 ASA 81 mg PO daily CXR shows some vascular congestion HOLD lasix 40 daily Blood/urine cultures UDS Echo in Mar shows normal LV fx F/u carotid dopplers F/u EEG Cardio consult, Dr. Alva, help appreciated Neuro consult, Dr. Dawn, help appreciated head CT negative orthostatic vital signs ABG NS 100 cc/hr 2. Essential tremor continue Mysoline 50 mg PO HS Neuro consult, Dr. Dawn, help appreciated 3. Transaminitis LFTs downtrending, possibly related to prolonged hypotension hepatitis panel Anti-Smooth muscle Ab, Anti-Neutropil Ab, Anti-Mitochondrial Ab GI consult, Dr. Carpenter, help appreciated Abdominal US 4. Asthma Duonebs 3 mL IH Q6H prn 5. Cough continue flonase 1 spray IN each nostril BID continue tessalon perles 100 mg PO TID Influenza negative 6. Hyperkalemia Resolved no ekg changes 7. Prophylactic Measures protonix 40 mg IVP daily SCDs PT evaluation high risk fall precautions <Josr Britton - Last Filed: 05/15/16 15:20> Objective - Vital Signs/Intake and Output Vital Signs (last 24 hours): Temp Pulse Resp BP Pulse Ox 98 F 72 20 104/62 99 05/15/16 12:00 05/15/16 12:00 05/15/16 12:00 05/15/16 12:00 05/15/16 05:37 Intake and Output: 05/15/16 05/15/16 06:59 18:59 Intake Total 600 Balance 600 - Medications Medications: Current Medications Aspirin (Aspirin Chewable) 81 mg PO DAILY [facility] Last Admin: 05/15/16 10:31 Dose: 81 mg Benzonatate (Tessalon Perles) 100 mg PO TID [facility] Last Admin: 05/15/16 13:14 Dose: 100 mg Fluticasone Propionate (Flonase) 1 actuation NS BID [facility] Last Admin: 05/15/16 10:31 Dose: 1 spr Sodium Chloride (Sodium Chloride 0.9%) 1,000 mls @ 150 mls/hr IV .Q6H40M [facility] Pantoprazole Sodium (Protonix Inj) 40 mg IVP DAILY [facility] Last Admin: 05/15/16 10:34 Dose: 40 mg Primidone (Mysoline) 50 mg PO HS [facility] Last Admin: 05/15/16 00:37 Dose: 50 mg - Labs Labs: 05/15/16 09:50 PT 11.5 Seconds (9.9-11.8) 05/15/16 09:05 INR 1.06 (0.93-1.08) 05/15/16 09:05 APTT 25.2 Seconds (23.7-30.8) 05/14/16 16:50 Assessment and Plan - Assessment and Plan (Free Text) Assessment: attending note; Patient seen and examined with resident. Patient is a 71-year-old female Admitted with dizziness and fall. the patient was recently admitted in the hospital for dizziness and had CTA, MRI, carotid Doppler, echocardiogram. possible poor by mouth intake/hypotension as a cause of syncope. Started on IV fluids. Chest x-ray showed mild vascular changes congestion/elevated BNP. But patient is clinically not in volume overload. Metabolic alkalosis; continue IV fluids and monitor. Urine studies ordered. elevated LFTs; secondary to hypotension/low-flow state. Monitor closely. cardiology evaluation requested. Cardiac enzymes 2 negative. Recent echo showed normal ejection fraction. Neurology evaluation requested. physical therapy evaluation ordered. Upon discharge patient will follow-up with PMD . Attending/Attestation - Attestation I have personally seen and examined this patient.: Yes I have fully participated in the care of the patient.: Yes I have reviewed all pertinent clinical information, including history, physical exam and plan: Yes
[2016-05-15] MEDS: Fluticasone Nasal 50 mcg/Spray NS SCH ×2 (10:31→17:33)
--- NOTE | 2016-05-15 12:18 | CARD ---
APPROVED REPORT EKG Measurement Heart [id number] <Conclusion> Sinus rhythm with premature atrial complexes Possible Anterior infarct, age undetermined Abnormal ECG
--- NOTE | 2016-05-15 14:28 | CON ---
DATE: 05/15/2016 CHIEF COMPLAINT: Tremors. HISTORY OF PRESENT ILLNESS: A 71-year-old woman who is well known to me from the past with past medi ju history of vertigo, history of low back pain with multiple falls, history of old right transverse process fracture of L2, L3, L4, history of essential tremors on Mysoline 50 mg p.o. at bedtime, who had a fall at home. The patient describes an event that she felt unsteady, whole body shaking and garcia bsequently fell, no loss of consciousness. She does feel lightheaded. She had a questionable syncop al episode in the past. Denies any bowel incontinence. Her blood pressure systolically and diastoli yasmany is on the lower side. PAST MEDICAL HISTORY: Essential tremors, history of chronic lumbar pain and history of L2, L3, L4 ri ght transverse old spinous process fractures, history of vertigo. REVIEW OF SYSTEMS: A 14-point review of systems is negative except for the HPI. MEDICATIONS: Reviewed by medicine reconciliation sheet. ALLERGIES: No known drug allergies. SOCIAL HISTORY: No illicit drug use, smoking, or ETOH abuse. PHYSICAL EXAMINATION: VITAL SIGNS: Temperature 98, pulse rate is 72, blood pressure 104/62, respiratory rate 20, oxygen 99 % on room air. GENERAL: The patient is sitting up in bed in no acute distress. HEENT: Atraumatic, normocephalic. PERRLA. Extraocular muscles intact. NECK: Supple, no JVD, no adenopathy noted. LUNGS: Clear to auscultation. No adventitious sounds. HEART: S1, S2, normal rate and rhythm. No murmurs, rubs, or gallops. ABDOMEN: Soft, nontender, nondistended. Bowel sounds present. EXTREMITIES: No clubbing, no cyanosis. Peripheral pulses 2+ felt bilaterally. NEUROLOGIC: The patient is alert, oriented to person, place, month and year. Speech is fluent, with out any errors. Recall after 5 minutes is 0 out of 3. Cranial nerves II through XII are intact. MOTOR: Moves all extremities equally, slightly increased tone throughout. SENSORY: Light touch, pinprick, proprioception, vibration intact. Toes are downgoing bilaterally. DTRs are 1+ throughout. COORDINATION: [id number] intact and has a mild action tremor. GAIT: Deferred for now. LABORATORIES: Sodium is 139, potassium 3.6, chloride of 87, carbon dioxide 51, BUN 5, creatinine of 0.6. She has elevated LFTs. ASSESSMENT AND PLAN: This is a 71-year-old woman with past medical history of essential tremors on M ysoline 50 mg p.o. at bedtime, history of multiple lumbar spinal fractures L2, L4 and the right trans verse process, history of vertigo, history of multiple falls in the past, had a fall at home and had a questionable shaking episode. She has a blood pressure systolically and diastolically on the lower side. Likely her suspected falls are likely from secondary transient hypotension leading to general ized weakness and deconditioned state. At this time, recommend: 1. Physical therapy evaluation for unsteady gait. She does have baseline unsteady gait at times. 2. Keep her systolic blood pressure above 110-130 and hydrate the patient. 3. Continue Mysoline 50 mg p.o. at bedtime for underlying essential tremors, no need for an EEG. Sh hemant will follow up in the office for further management and get an EMG and nerve conduction study to as sess for if she has any degree of neuropathy causing her multiple falls. At this time, she is clinic ally stable from my standpoint, can reconsult if necessary. Erick Dawn MD cc: [id number] TT: 05/15/2016 14:28:17 Confirmation # [id number] Dictation # [id number] mn
[2016-05-15 15:59] LABS: ARTERIAL BLOOD GAS O2 CAPACITY 15.6 mL/dl (16-24); ARTERIAL BLOOD GAS O2 CONTENT 15.1 ML/dl (15-23); ARTERIAL BLOOD GAS PH 7.36 (7.35-7.45); HHB 2.9 % (0-5); METHEMOGLOBIN 1.1 % (0.0-3.0)
[2016-05-15 16:05] LABS: ARTERIAL BLOOD GAS HCO3 49.1 mmol/L (21-28)
[2016-05-15] MEDS: Sodium Chloride 0.9% 1,000 ML IV SCH (17:34)
--- NOTE | 2016-05-15 18:49 | CON ---
DATE: 05/15/2016 SERVICE: Cardiology. REASON FOR CONSULTATION AND FOLLOWUP: Cardiac evaluation, admitted with near syncope, rule out conge stive heart failure. BRIEF CLINICAL HISTORY: This is a 71-year-old female with past medical history of COPD, back pain, g ait instability and tremor, came in and says she started shaking up and feels that she was going to p ass out, so came here. Denies any chest pain, shortness of breath, any palpitation. Admitted for F. The patient is clinically not in CHF. PAST MEDICAL HISTORY: Significant for asthma, back pain, gait instability and essential tremor. Previous cardiac workup as follows: The patient had echocardiography done on 03/21/2016 that showed n o pericardial effusion, normal LV function, normal LV wall thickness, normal LV ejection fraction rep orted, calculated at 56%, mitral regurgitation, there is trace tricuspid regurg, RV systolic pressure 18. CURRENT MEDICATIONS: The patient at home was taking Primidone for tremor, multivitamin, Singulair, A dvair Diskus, and albuterol inhaler. ALLERGIES: No known drug allergies. REVIEW OF SYSTEMS: As per HPI. PHYSICAL EXAMINATION: VITAL SIGNS: Temperature afebrile, heart rate 72, blood pressure 104/62. HEENT: PERRLA. Extraocular muscles intact. NECK: Supple. No carotid bruits. No thyromegaly. CHEST: Clear to auscultation. HEART: S1, S2 regular. ABDOMEN: Soft. EXTREMITIES: Clubbing and cyanosis negative. LABORATORY DATA: Blood workup as follows: WBC 7.3, hemoglobin 12.4, hematocrit 41.9, platelet count 222. Chemistry shows sodium 130, potassium 3.6, chloride 87, carbon dioxide 51, anion gap of 5, BUN 18, creatinine 0.6. Troponin 0.09. IMPRESSION: Gait instability, tremor, clinically not in congestive heart failure with BNP 3820, repo rt was normal. Last echo shows preserved left ventricular function, trace mitral regurgitation, trac e tricuspid regurgitation, systolic pressure 15. RECOMMENDATION: Check for orthostasis. Continue aspirin. Continue treatment for COPD. Possible di scharge planning. We will follow with you. Elevated liver enzymes, which is trending down, probably contraction alkalosis. Continue IV fluid and . Will follow with you. Thank you, Dr. Britton, for providing the opportunity in taking care of this patient. We will follo w with you. Nura Dotson MD cc: [id number] TT: 05/15/2016 18:48:12 Confirmation # [id number] Dictation # [id number] rn
[2016-05-16] MEDS: Sodium Chloride 0.9% 1,000 ML IV SCH (01:00)
[2016-05-16 07:35] LABS: HEMATOCRIT 38.1 % (36.0-48.0); MEAN CELL VOLUME 83.7 fL (80.0-105.0); MEAN CORPUSCULAR HEMOGLOBIN 24.6 pg (25.0-35.0); MEAN CORPUSCULAR HGB CONC 29.4 g/dl (31.0-37.0); MEAN PLATELET VOLUME 10.5 fl (7.0-11.0); RED CELL DISTRIBUTION WIDTH 14.7 % (11.5-14.5); WHITE BLOOD COUNT 5.9 10^3/ul (4.5-11.0)
[2016-05-16 07:48] LABS: ALB/GLOB RATIO 1.1 (1.1-1.8); ALKALINE PHOSPHATASE 64 U/L (38-133); ALT/SGPT 183 U/L (7-56); AST/SGOT 96 U/L (15-39); BILIRUBIN,TOTAL 0.6 mg/dL (0.2-1.3); BLOOD UREA NITROGEN 18 mg/dL (7-21); CALCIUM 7.7 mg/dL (8.4-10.5); CHLORIDE 94 mmol/L (98-107); CHOLESTEROL 145 mg/dL (130-200); GFR AFRICAN-AMERICAN > 60; GLUCOSE,RANDOM 92 mg/dL (70-110); POTASSIUM 3.7 mmol/L (3.6-5.0); SODIUM 140 mmol/L (132-148); TOTAL PROTEIN 6.3 g/dL (5.8-8.3)
[2016-05-16 07:56] LABS: TROPONIN I 0.07 ng/mL
[2016-05-16 08:03] LABS: CARBON DIOXIDE 43 mmol/L (21-33)
--- NOTE | 2016-05-16 08:53 | CP.PCM.PN ---
<Radha Ha - Last Filed: 05/16/16 08:58> Subjective - Date & Time of Evaluation Date of Evaluation: 05/16/16 Time of Evaluation: 08:49 - Subjective Subjective: Gastroenterology Fellow/PGY4 Progress Note Patient denies abdominal pain or nausea. No bowel movement since admission. Tolerating diet. NPO for Ultrasound. A 12-point review of systems negative except for as above. Objective - Vital Signs/Intake and Output Vital Signs (last 24 hours): Temp Pulse Resp BP Pulse Ox 98.2 F 79 20 110/62 98 05/16/16 06:00 05/16/16 06:00 05/16/16 06:00 05/16/16 06:00 05/16/16 06:00 Intake and Output: 05/16/16 05/16/16 06:59 18:59 Intake Total 2210 Output Total 840 Balance 1370 - Medications Medications: Current Medications Aspirin (Aspirin Chewable) 81 mg PO DAILY [facility] Last Admin: 05/15/16 10:31 Dose: 81 mg Benzonatate (Tessalon Perles) 100 mg PO TID [facility] Last Admin: 05/15/16 17:36 Dose: 100 mg Fluticasone Propionate (Flonase) 1 actuation NS BID [facility] Last Admin: 05/15/16 17:33 Dose: 1 spr Sodium Chloride (Sodium Chloride 0.9%) 1,000 mls @ 150 mls/hr IV .Q6H40M [facility] Last Admin: 05/16/16 01:00 Dose: 150 mls/hr Pantoprazole Sodium (Protonix Inj) 40 mg IVP DAILY [facility] Last Admin: 05/15/16 10:34 Dose: 40 mg Primidone (Mysoline) 50 mg PO HS [facility] Last Admin: 05/15/16 23:06 Dose: 50 mg - Labs Labs: 05/16/16 07:00 05/16/16 07:00 PT 11.5 Seconds (9.9-11.8) 05/15/16 09:05 INR 1.06 (0.93-1.08) 05/15/16 09:05 APTT 25.2 Seconds (23.7-30.8) 05/14/16 16:50 - Constitutional Appears: Non-toxic, No Acute Distress - Head Exam Head Exam: ATRAUMATIC, NORMOCEPHALIC - Eye Exam Eye Exam: EOMI, PERRL Pupil Exam: PERRL. absent: Miosis, Mydriatic - ENT Exam ENT Exam: Mucous Membranes Moist, Normal Oropharynx - Neck Exam Neck Exam: Full ROM, Normal Inspection - Respiratory Exam Respiratory Exam: Clear to Ausculation Bilateral. absent: Rales, Rhonchi, Wheezes - Cardiovascular Exam Cardiovascular Exam: RRR, +S1, +S2. absent: Gallop, Rubs - GI/Abdominal Exam GI & Abdominal Exam: Soft, Normal Bowel Sounds. absent: Distended, Firm, Guarding, Rigid, Tenderness, Organomegaly, Rebound - Extremities Exam Extremities Exam: Full ROM. absent: Pedal Edema - Neurological Exam Neurological Exam: Alert, Awake - Psychiatric Exam Psychiatric exam: Normal Affect, Normal Mood - Skin Skin Exam: Dry, Intact, Normal Color, Warm Assessment and Plan - Assessment and Plan (Free Text) Assessment: 71 year old female with history of recurrent falls, lumbar spine fractures (L2-4 ), essential tremors presenting with fall at home. Laboratory findings showing elevated liver function tests. Colonoscopy over ten years prior endorsed to be normal. Plan: >pending Ultrasound >pending Hepatitis panel and autoimmune workup: TRINITY, ASMA, AMA >DDx: rhabdomyolysis, transient hypotension >neurology managing- outpatient EMG, nerve conduction studies >cardiology managing-orthostatics >will follow clinical course <Anibal Carpenter - Last Filed: 05/16/16 09:08> Objective - Vital Signs/Intake and Output Vital Signs (last 24 hours): Temp Pulse Resp BP Pulse Ox 98.2 F 79 20 110/62 98 05/16/16 06:00 05/16/16 06:00 05/16/16 06:00 05/16/16 06:00 05/16/16 06:00 Intake and Output: 05/16/16 05/16/16 06:59 18:59 Intake Total 2210 Output Total 840 Balance 1370 - Medications Medications: Current Medications Aspirin (Aspirin Chewable) 81 mg PO DAILY [facility] Last Admin: 05/15/16 10:31 Dose: 81 mg Benzonatate (Tessalon Perles) 100 mg PO TID [facility] Last Admin: 05/15/16 17:36 Dose: 100 mg Fluticasone Propionate (Flonase) 1 actuation NS BID [facility] Last Admin: 05/15/16 17:33 Dose: 1 spr Sodium Chloride (Sodium Chloride 0.9%) 1,000 mls @ 150 mls/hr IV .Q6H40M [facility] Last Admin: 05/16/16 01:00 Dose: 150 mls/hr Pantoprazole Sodium (Protonix Inj) 40 mg IVP DAILY [facility] Last Admin: 05/15/16 10:34 Dose: 40 mg Primidone (Mysoline) 50 mg PO HS [facility] Last Admin: 05/15/16 23:06 Dose: 50 mg - Labs Labs: 05/16/16 07:00 05/16/16 07:00 PT 11.5 Seconds (9.9-11.8) 05/15/16 09:05 INR 1.06 (0.93-1.08) 05/15/16 09:05 APTT 25.2 Seconds (23.7-30.8) 05/14/16 16:50 Attending/Attestation - Attestation I have personally seen and examined this patient.: Yes I have fully participated in the care of the patient.: Yes I have reviewed all pertinent clinical information, including history, physical exam and plan: Yes Notes (Text): 05/16/16 09:04 I have seen and examined patient with GI fellow. No acute events overnight, her previously described chest/abdominal pain have resolved. She denies nausea , vomiting, fever/chills. Review of vitals from today are normal. Recurrent falls, tremor Transaminitis, unclear etiology, possibly related to rhabdomyolysis - Diet as tolerated - Continue to monitor LFTs, avoid hepatotoxic medication - Awaiting abdominal US - Autoimmune panel serologies ordered, awaiting results - Will continue to monitor patient clinical course
--- NOTE | 2016-05-16 09:50 | US ---
HISTORY: Elevated liver function tests COMPARISON: None. TECHNIQUE: Sonographic evaluation of the abdomen. FINDINGS: LIVER: Measures 13.2 cm. Normal echogenicity of the liver parenchyma. There is a nonspecific coarse calcification in the left hepatic lobe. No mass. No intrahepatic bile duct dilatation. GALLBLADDER: Unremarkable. No gallstones. COMMON BILE DUCT: Measures mm. No stones. No dilatation. PANCREAS: Unremarkable as visualized. No mass. No ductal dilatation. RIGHT KIDNEY: Measures 10.2cm. Normal echogenicity. No calculus, mass, or hydronephrosis. LEFT KIDNEY: Measures 11.1cm. Normal echogenicity. No calculus, mass, or hydronephrosis. SPLEEN: Normal in size and contour. No mass. AORTA: No aneurysmal dilatation. IVC: Unremarkable. OTHER FINDINGS: None. IMPRESSION: Normal examination.
[2016-05-16] MEDS: Fluticasone Nasal 50 mcg/Spray NS SCH ×2 (09:55→17:17)
--- NOTE | 2016-05-16 13:14 | CT ---
PROCEDURE: CT Chest without contrast HISTORY: copd COMPARISON: None. TECHNIQUE: Contiguous axial images were obtained through the chest without intravenous contrast enhancement. Sagittal and coronal reconstructions were performed. Radiation dose (DLP): 164 mGy-cm. This CT exam was performed using one or more of the following dose reduction techniques: Automated exposure control, adjustment of the mA and/or kV according to patient size, and/or use of iterative reconstruction technique. FINDINGS: LUNGS: There is focal consolidation at the left lung base suspicious for pneumonia. MEDIASTINUM: Unremarkable thoracic aorta. No aneurysm. Normal sized heart. There is a moderate amount of vascular congestion No lymphadenopathy. PLEURA: No pleural fluid. No pneumothorax. BONES: No fracture. No destructive lesion. UPPER ABDOMEN: Grossly unremarkable. OTHER FINDINGS: Coronary artery calcifications IMPRESSION: Moderate vascular congestion. Focal consolidation in the left lower lobe suspicious for pneumonia
[2016-05-16] MEDS ORDERED: levoFLOXacin 750 MG TAB PO ONE (13:50)
--- NOTE | 2016-05-16 15:53 | CP.PCM.PN ---
<Uma Landeros - Last Filed: 05/16/16 15:46> Subjective - Date & Time of Evaluation Date of Evaluation: 05/16/16 Time of Evaluation: 15:46 - Subjective Subjective: Note for Hospitalist PT s&e w attending. Pt on BiPAP. Denies F/C/N/V/D/CP/SOB/dizziness. Pt feels better with BiPAP. + ambulating with PT. Tolerating diet Objective - Vital Signs/Intake and Output Vital Signs (last 24 hours): Temp Pulse Resp BP Pulse Ox 97 F L 73 20 134/75 98 05/16/16 12:00 05/16/16 12:00 05/16/16 12:00 05/16/16 12:00 05/16/16 06:00 Intake and Output: 05/16/16 05/16/16 06:59 18:59 Intake Total 2210 360 Output Total 840 6 Balance 1370 354 - Medications Medications: Current Medications Aspirin (Aspirin Chewable) 81 mg PO DAILY [facility] Last Admin: 05/16/16 09:34 Dose: 81 mg Benzonatate (Tessalon Perles) 100 mg PO TID [facility] Last Admin: 05/16/16 14:13 Dose: 100 mg Fluticasone Propionate (Flonase) 1 actuation NS BID [facility] Last Admin: 05/16/16 09:55 Dose: 1 spr Levofloxacin (Levaquin) 750 mg PO DAILY [facility] Pantoprazole Sodium (Protonix Inj) 40 mg IVP DAILY [facility] Last Admin: 05/16/16 09:33 Dose: 40 mg Primidone (Mysoline) 50 mg PO HS [facility] Last Admin: 05/15/16 23:06 Dose: 50 mg - Labs Labs: 05/16/16 07:00 05/16/16 07:00 PT 11.5 Seconds (9.9-11.8) 05/15/16 09:05 INR 1.06 (0.93-1.08) 05/15/16 09:05 APTT 25.2 Seconds (23.7-30.8) 05/14/16 16:50 - Constitutional Appears: Well, No Acute Distress - Head Exam Head Exam: ATRAUMATIC, NORMAL INSPECTION, NORMOCEPHALIC - Eye Exam Eye Exam: EOMI, Normal appearance, PERRL Pupil Exam: NORMAL ACCOMODATION, PERRL - ENT Exam ENT Exam: Mucous Membranes Moist, Normal Exam - Neck Exam Neck Exam: Full ROM, Normal Inspection. absent: Lymphadenopathy - Respiratory Exam Respiratory Exam: Clear to Ausculation Bilateral. absent: Accessory Muscle Use , Respiratory Distress - Cardiovascular Exam Cardiovascular Exam: REGULAR RHYTHM, +S1, +S2. absent: Murmur - GI/Abdominal Exam GI & Abdominal Exam: Soft, Normal Bowel Sounds. absent: Distended, Firm, Tenderness - Extremities Exam Extremities Exam: Full ROM, Normal Capillary Refill, Normal Inspection. absent : Joint Swelling, Pedal Edema - Back Exam Back Exam: NORMAL INSPECTION - Neurological Exam Neurological Exam: Alert, Awake, CN II-XII Intact, Normal Gait, Oriented x3 - Psychiatric Exam Psychiatric exam: Normal Affect, Normal Mood - Skin Skin Exam: Dry, Intact, Normal Color, Warm Assessment and Plan - Assessment and Plan (Free Text) Assessment: 1. Pre-syncopal episode EKG shows NSR Serial cardiac enzymes negative x 3 ASA 81 mg PO daily CXR shows some vascular congestion urine cultures: Gram + Cocci Echo in Mar shows normal LV fx F/u EEG Cardio consult, Dr. Alva, help appreciated Neuro consult, Dr. Dawn, help appreciated head CT negative 2. Essential tremor continue Mysoline 50 mg PO HS Neuro consult, Dr. Dawn, help appreciated 3. Transaminitis LFTs downtrending, possibly related to prolonged hypotension hepatitis panel: neg Anti-Smooth muscle Ab, Anti-Neutropil Ab, Anti-Mitochondrial Ab: neg GI consult, Dr. Carpenter, help appreciated Abdominal US: Fatty liver 4. Asthma Duonebs 3 mL IH Q6H prn 5. Cough continue flonase 1 spray IN each nostril BID continue tessalon perles 100 mg PO TID Influenza negative 6. Hyperkalemia Resolved no ekg changes 7. Prophylactic Measures protonix 40 mg IVP daily SCDs PT evaluation high risk fall precautions HHD Dispo: TCU eval. Possible DC tomorrow to TCU or [facility] <Nicolasa López B - Last Filed: 05/16/16 16:09> Objective - Vital Signs/Intake and Output Vital Signs (last 24 hours): Temp Pulse Resp BP Pulse Ox 97 F L 73 20 134/75 98 05/16/16 12:00 05/16/16 12:00 05/16/16 12:00 05/16/16 12:00 05/16/16 06:00 Intake and Output: 05/16/16 05/16/16 06:59 18:59 Intake Total 2210 360 Output Total 840 6 Balance 1370 354 - Medications Medications: Current Medications Aspirin (Aspirin Chewable) 81 mg PO DAILY [facility] Last Admin: 05/16/16 09:34 Dose: 81 mg Benzonatate (Tessalon Perles) 100 mg PO TID [facility] Last Admin: 05/16/16 14:13 Dose: 100 mg Fluticasone Propionate (Flonase) 1 actuation NS BID [facility] Last Admin: 05/16/16 09:55 Dose: 1 spr Levofloxacin (Levaquin) 750 mg PO DAILY [facility] Pantoprazole Sodium (Protonix Inj) 40 mg IVP DAILY [facility] Last Admin: 05/16/16 09:33 Dose: 40 mg Primidone (Mysoline) 50 mg PO HS [facility] Last Admin: 05/15/16 23:06 Dose: 50 mg - Labs Labs: 05/16/16 07:00 05/16/16 07:00 PT 11.5 Seconds (9.9-11.8) 05/15/16 09:05 INR 1.06 (0.93-1.08) 05/15/16 09:05 APTT 25.2 Seconds (23.7-30.8) 05/14/16 16:50 Attending/Attestation - Attestation I have personally seen and examined this patient.: Yes I have fully participated in the care of the patient.: Yes I have reviewed all pertinent clinical information, including history, physical exam and plan: Yes Notes (Text): Patient seen and examined with resident at the bedside. This is 71 year old female with history of chronic back pain, chronic lumbar spine fracture and asthma who was recently discharged from the hospital s/p fall and generalized weakness who got admitted again with dizziness and fall which was thought to be secondary to myopathy, deconditioning, hypotension or poor po intake. CXR showed vascular congestion and BNP was elevated however echo showed normal LVEF. Cardiology and neuro consult appreciated. PT recommended TCU eval. Patient has elevated LFT's secondary to hepatic steatosis. Upon discharge patient will follow-up with PMD .
--- NOTE | 2016-05-16 16:51 | PN ---
DATE: 05/16/2016 REASON FOR CONSULTATION AND FOLLOWUP: Cardiac evaluation, admitted with near syncope, rule out conge stive heart failure. BRIEF CLINICAL HISTORY: This is a 71-year-old female with past medical history significant for COPD, back pain, gait instability and tremor. Came, says that she was ____ the body. She was about to pa ss out so came to the Emergency Room. Denies any chest pain, shortness of breath, any palpitation. Admitted with ____, CHF. The patient is clinically not in heart failure, not in CHF. PHYSICAL EXAMINATION: As follows: VITAL SIGNS: Temperature afebrile, heart rate 73, blood pressure 134/75. HEENT: PERRLA. Extraocular muscles intact. NECK: Supple. No carotid bruit or thyromegaly. CHEST: Clear to auscultation. HEART: S1, S2 regular. ABDOMEN: Soft. EXTREMITIES: Clubbing and cyanosis negative. BLOOD WORKUP: As follows: WBC 5.9, hemoglobin ____, hematocrit 38.1, platelet count 157. Chemistry shows sodium 140, potassium 3.7, chloride 94, carbon dioxide 43, anion gap of 7, BUN 18, creatinine 0.5. Troponin 0.07, 0.07, 0.7. IMPRESSION: Elevated BNP. Shaking all over the body. No evidence of acute coronary syndrome. The patient had an echo on 03/21/2016 that shows pericardial effusion, normal left ventricular function, normal wall thickness, ejection fraction reported 76%, trace tricuspid regurgitation, right ventricul ar systolic pressure 18. Continue ____, chronic obstructive pulmonary disease, elevated BNP, but las t echo shows preserved left ventricular function. Clinically, patient is not in failure. RECOMMENDATION: We will follow. Troponin is indeterminate. ____ stability, but no evidence of acut e myocardial infarction. We will discontinue telemetry. Aggressive medical treatment. We will foll ow with you. Thank you, Dr. López, for providing is the opportunity in taking care of the patient. We will follow with you. Nura Dotson MD cc: [id number] TT: 05/16/2016 16:51:33 Confirmation # [id number] Dictation # [id number]
[2016-05-17 05:51] LABS: ARTERIAL BLOOD GAS O2 CAPACITY 15.1 mL/dl (16-24); ARTERIAL BLOOD GAS PH 7.45 (7.35-7.45); ARTERIAL BLOOD HGB O2 SAT 96.6 % (95.0-98.0); HHB 0.4 % (0-5)
[2016-05-17 06:57] LABS: ARTERIAL BLOOD GAS HCO3 40.3 mmol/L (21-28)
[2016-05-17 08:09] LABS: HEMATOCRIT 35.7 % (36.0-48.0); MEAN CORPUSCULAR HEMOGLOBIN 25.2 pg (25.0-35.0); MEAN CORPUSCULAR HGB CONC 31.1 g/dl (31.0-37.0); MEAN PLATELET VOLUME 11.1 fl (7.0-11.0); RED CELL DISTRIBUTION WIDTH 14.4 % (11.5-14.5); WHITE BLOOD COUNT 6.1 10^3/ul (4.5-11.0)
[2016-05-17 08:16] LABS: ALB/GLOB RATIO 1.1 (1.1-1.8); ALKALINE PHOSPHATASE 62 U/L (38-133); ALT/SGPT 130 U/L (7-56); AST/SGOT 57 U/L (15-39); BILIRUBIN,TOTAL 0.7 mg/dL (0.2-1.3); BLOOD UREA NITROGEN 15 mg/dL (7-21); CALCIUM 8.2 mg/dL (8.4-10.5); CARBON DIOXIDE 40 mmol/L (21-33); CHLORIDE 92 mmol/L (98-107); GFR AFRICAN-AMERICAN > 60; GLUCOSE,RANDOM 79 mg/dL (70-110); POTASSIUM 3.8 mmol/L (3.6-5.0); SODIUM 137 mmol/L (132-148); TOTAL PROTEIN 6.3 g/dL (5.8-8.3)
--- NOTE | 2016-05-17 08:33 | CP.PCM.PN ---
<LelandRadha - Last Filed: 05/17/16 10:28> Subjective - Date & Time of Evaluation Date of Evaluation: 05/17/16 Time of Evaluation: 08:29 - Subjective Subjective: Gastroenterology Fellow/PGY4 Progress Note Patient denies abdominal pain. Tolerating regular diet. Small bowel movement yesterday. A 12-point review of systems negative except for as above. Objective - Vital Signs/Intake and Output Vital Signs (last 24 hours): Temp Pulse Resp BP Pulse Ox 98.1 F 77 18 108/77 94 L 05/16/16 17:33 05/17/16 01:22 05/16/16 17:33 05/16/16 17:33 05/16/16 16:00 Intake and Output: 05/17/16 05/17/16 06:59 18:59 Intake Total 840 Balance 840 - Medications Medications: Current Medications Aspirin (Aspirin Chewable) 81 mg PO DAILY [facility] Last Admin: 05/16/16 09:34 Dose: 81 mg Benzonatate (Tessalon Perles) 100 mg PO TID [facility] Last Admin: 05/16/16 17:17 Dose: 100 mg Fluticasone Propionate (Flonase) 1 actuation NS BID [facility] Last Admin: 05/16/16 17:17 Dose: 1 spr Levofloxacin (Levaquin) 750 mg PO DAILY [facility] Pantoprazole Sodium (Protonix Ec Tab) 40 mg PO ACB [facility] Primidone (Mysoline) 50 mg PO HS [facility] Last Admin: 05/16/16 21:08 Dose: 50 mg - Labs Labs: 05/17/16 07:00 05/17/16 07:00 PT 11.5 Seconds (9.9-11.8) 05/15/16 09:05 INR 1.06 (0.93-1.08) 05/15/16 09:05 APTT 25.2 Seconds (23.7-30.8) 05/14/16 16:50 - Constitutional Appears: Non-toxic, No Acute Distress - Head Exam Head Exam: ATRAUMATIC, NORMOCEPHALIC - Eye Exam Eye Exam: EOMI, PERRL Pupil Exam: PERRL. absent: Miosis, Mydriatic - ENT Exam ENT Exam: Mucous Membranes Moist, Normal Oropharynx - Neck Exam Neck Exam: Full ROM, Normal Inspection - Respiratory Exam Respiratory Exam: Decreased Breath Sounds, Clear to Ausculation Bilateral. absent: Rales, Rhonchi, Wheezes Additional comments: CTA B/L upper lobes, decreased bibasilar lung sounds - Cardiovascular Exam Cardiovascular Exam: +S1, +S2. absent: Gallop, Rubs - GI/Abdominal Exam GI & Abdominal Exam: Soft, Normal Bowel Sounds. absent: Distended, Firm, Guarding, Rigid, Tenderness, Mass, Organomegaly, Rebound - Extremities Exam Extremities Exam: Full ROM. absent: Pedal Edema - Neurological Exam Neurological Exam: Alert, Awake - Psychiatric Exam Psychiatric exam: Normal Affect, Normal Mood - Skin Skin Exam: Dry, Intact, Normal Color, Warm Assessment and Plan - Assessment and Plan (Free Text) Assessment: 71 year old female with history of recurrent falls, lumbar spine fractures (L2-4 ), essential tremors presenting with fall at home. Laboratory findings showing elevated transaminases. Colonoscopy over ten years prior endorsed to be normal. Plan: >Ultrasound- no acute findings >negative Hepatitis panel, ASMA, AMA; TRINITY pending >CT chest- vascular congestion and LLL consolidate >likely component of congestive hepatopathy >LFTS trending down >normal total CK >neurology managing- outpatient EMG, nerve conduction studies >cardiology managing-follow recommendations >will follow clinical course <Alli Rose - Last Filed: 05/17/16 18:02> Objective - Vital Signs/Intake and Output Vital Signs (last 24 hours): Temp Pulse Resp BP Pulse Ox 98.2 F 74 20 109/69 98 05/17/16 16:00 05/17/16 16:00 05/17/16 16:00 05/17/16 16:00 05/17/16 16:00 Intake and Output: 05/17/16 05/17/16 06:59 18:59 Intake Total 840 240 Balance 840 240 - Medications Medications: Current Medications Aspirin (Aspirin Chewable) 81 mg PO DAILY [facility] Last Admin: 05/17/16 09:48 Dose: 81 mg Benzonatate (Tessalon Perles) 100 mg PO TID [facility] Last Admin: 05/17/16 17:08 Dose: 100 mg Fluticasone Propionate (Flonase) 1 actuation NS BID [facility] Last Admin: 05/17/16 17:08 Dose: 1 spr Pantoprazole Sodium (Protonix Ec Tab) 40 mg PO ACB [facility] Last Admin: 05/17/16 09:49 Dose: 40 mg Primidone (Mysoline) 50 mg PO HS [facility] Last Admin: 05/16/16 21:08 Dose: 50 mg - Labs Labs: 05/17/16 07:00 05/17/16 07:00 PT 11.5 Seconds (9.9-11.8) 05/15/16 09:05 INR 1.06 (0.93-1.08) 05/15/16 09:05 APTT 25.2 Seconds (23.7-30.8) 05/14/16 16:50 Attending/Attestation - Attestation I have personally seen and examined this patient.: Yes I have fully participated in the care of the patient.: Yes I have reviewed all pertinent clinical information, including history, physical exam and plan: Yes Notes (Text): 05/17/16 18:00 71 year old female with h/o falls, lumbar fractures, essential tremor, admitted after fall, found to have elevated LFTs. 1. Elevated LFTs Plan: -downtrending steadily -uncertain etiology -US was unrevealing, hepatitis and autoimmune serologies negative -possible congestive hepatopathy or drug induced -recommend repeat lfts in 2 weeks as outpatient with follow up -will sign off
[2016-05-17] MEDS: Fluticasone Nasal 50 mcg/Spray NS SCH ×2 (09:48→17:08)
[2016-05-17] MEDS: Pantoprazole 40 mg EC Tab PO SCH (09:49)
[2016-05-17] MEDS ORDERED: levoFLOXacin 750 MG TAB PO SCH (10:00)
[2016-05-17 10:08] VITALS: RESP 20
--- NOTE | 2016-05-17 11:06 | CP.PCM.PN ---
<Cookie Aviles - Last Filed: 05/17/16 22:41> Subjective - Date & Time of Evaluation Date of Evaluation: 05/17/16 Time of Evaluation: 08:45 - Subjective Subjective: Hospitalist progress note for Dr. Nicolasa López Pt s/e this AM. NAEO. Patient used CPAP overnight. Patient denies any symptoms beside persist cough productive of some sputum. Tolerating diet well. Would like to go home. Discussed need for PT evaluation and treatment as recommended by neurology and PT, but patient refuses discharge to [facility]. Would like to go live with children in [place] but denies any active plans to move. Alternatively would like to live with sister, but sister is estranged from her. Objective - Vital Signs/Intake and Output Vital Signs (last 24 hours): Temp Pulse Resp BP Pulse Ox 97.8 F 64 20 116/64 99 05/17/16 06:00 05/17/16 06:00 05/17/16 06:00 05/17/16 06:00 05/17/16 06:00 Intake and Output: 05/17/16 05/17/16 06:59 18:59 Intake Total 840 240 Balance 840 240 - Medications Medications: Current Medications Aspirin (Aspirin Chewable) 81 mg PO DAILY [facility] Last Admin: 05/17/16 09:48 Dose: 81 mg Benzonatate (Tessalon Perles) 100 mg PO TID [facility] Last Admin: 05/17/16 09:49 Dose: 100 mg Fluticasone Propionate (Flonase) 1 actuation NS BID [facility] Last Admin: 05/17/16 09:48 Dose: 1 spr Levofloxacin (Levaquin) 750 mg PO DAILY [facility] Last Admin: 05/17/16 09:49 Dose: 750 mg Pantoprazole Sodium (Protonix Ec Tab) 40 mg PO ACB [facility] Last Admin: 05/17/16 09:49 Dose: 40 mg Primidone (Mysoline) 50 mg PO HS [facility] Last Admin: 05/16/16 21:08 Dose: 50 mg - Labs Labs: 05/17/16 07:00 05/17/16 07:00 PT 11.5 Seconds (9.9-11.8) 05/15/16 09:05 INR 1.06 (0.93-1.08) 05/15/16 09:05 APTT 25.2 Seconds (23.7-30.8) 05/14/16 16:50 - Constitutional Appears: Well, Non-toxic, No Acute Distress - Head Exam Head Exam: ATRAUMATIC, NORMOCEPHALIC - Eye Exam Eye Exam: Normal appearance. absent: Conjunctival injection, Scleral icterus - ENT Exam ENT Exam: Mucous Membranes Moist, Normal Exam - Respiratory Exam Respiratory Exam: NORMAL BREATHING PATTERN. absent: Accessory Muscle Use, Decreased Breath Sounds - GI/Abdominal Exam GI & Abdominal Exam: Soft. absent: Distended, Tenderness - Extremities Exam Extremities Exam: Normal Inspection. absent: Calf Tenderness, Pedal Edema - Back Exam Back Exam: absent: CVA tenderness (L), CVA tenderness (R), tenderness - Neurological Exam Neurological Exam: Alert, Awake, Oriented x3 - Psychiatric Exam Psychiatric exam: Normal Affect, Normal Mood - Skin Skin Exam: Dry, Intact, Normal Color, Warm Assessment and Plan - Assessment and Plan (Free Text) Assessment: This is a 71 yo female with past medical hx of back pain, gait instability, asthma presenting with fall and near syncope. 1. Pre-syncopal episode Echo in Fe shows normal LV fx EKG shows NSR Serial cardiac enzymes negative x 3 CXR shows some vascular congestion head CT negative pro-calcitonin wnl Plan: ASA 81 mg PO daily Neurology consult: outpatient EMG for possible neuropathy Cardiology consult: continue agressive medical tx of COPD, continue CPAP 2. Essential tremor continue Mysoline 50 mg PO HS Neuro consult, Dr. Dawn, help appreciated 3. Transaminitis likely due to hepatic congestion 2/2 cardiac disease LFTs downtrending, possibly related to prolonged hypotension hepatitis panel: neg Anti-Smooth muscle Ab, Anti-Neutropil Ab, Anti-Mitochondrial Ab: neg GI consult, Dr. Carpenter: f/u labs for hepatitis and autoimmune Abdominal US: Fatty liver Hepatitis panel negative ASMA & AMA negative PLAN -Follow [facility] 4. Asthma/Asthma ABG improving PLAN -CPAP at night -Duonebs 3 mL IH Q6H prn 5. Cough Influenza negative procalcitonin negative plan -continue flonase 1 spray IN each nostril BID -continue tessalon perles 100 mg PO TID -D/C antibiotics--likely not infectious 6. Hyperkalemia Resolved no ekg changes 7. Prophylactic Measures protonix 40 mg IVP daily SCDs PT evaluation high risk fall precautions HHD Dispo: Possible DC tomorrow to [facility] <Nicolasa López B - Last Filed: 05/18/16 16:22> Objective - Vital Signs/Intake and Output Vital Signs (last 24 hours): Temp Pulse Resp BP Pulse Ox 97.8 F 63 20 118/68 100 05/18/16 06:00 05/18/16 11:37 05/18/16 06:00 05/18/16 06:00 05/18/16 06:00 Intake and Output: 05/18/16 05/18/16 06:59 18:59 Intake Total 360 Balance 360 - Medications Medications: Current Medications Albuterol/Ipratropium (Duoneb 3 Mg/0.5 Mg (3 Ml) Ud) 3 ml IH [id number] [facility] Last Admin: 05/18/16 15:35 Dose: 3 ml Aspirin (Aspirin Chewable) 81 mg PO DAILY [facility] Last Admin: 05/18/16 10:20 Dose: 81 mg Benzonatate (Tessalon Perles) 100 mg PO TID [facility] Last Admin: 05/18/16 14:38 Dose: 100 mg Fluticasone Propionate (Flonase) 1 actuation NS BID [facility] Last Admin: 05/18/16 10:20 Dose: 1 spr Pantoprazole Sodium (Protonix Ec Tab) 40 mg PO ACB [facility] Last Admin: 05/18/16 10:20 Dose: 40 mg Primidone (Mysoline) 50 mg PO HS [facility] Last Admin: 05/17/16 21:45 Dose: 50 mg - Labs Labs: 05/18/16 07:00 05/18/16 07:00 PT 11.5 Seconds (9.9-11.8) 05/15/16 09:05 INR 1.06 (0.93-1.08) 05/15/16 09:05 APTT 25.2 Seconds (23.7-30.8) 05/14/16 16:50 Attending/Attestation - Attestation I have personally seen and examined this patient.: Yes I have fully participated in the care of the patient.: Yes I have reviewed all pertinent clinical information, including history, physical exam and plan: Yes Notes (Text): Patient seen and examined with resident at the bedside. This is 71 year old female with history of chronic back pain, chronic lumbar spine fracture and asthma who was recently discharged from the hospital s/p fall and generalized weakness who got admitted with dizziness and fall which was thought to be secondary to myopathy, deconditioning, hypotension or poor po intake. CXR showed vascular congestion and BNP was elevated however echo showed normal LVEF. Cardiology and neuro consult appreciated. PT recommended TCU eval but she was not accepted in TCU due to insurance reasons. [facility] was recommended however patient refused to go. She told us that she lives with her sister and patient is comfortable with that. Call placed to the sister who informed us that patient is very stubborn and sister will like her to go to [facility]. Will discuss with patient and case manager specialist again. Patient has elevated LFT's secondary to hepatic steatosis. Upon discharge patient will follow-up with PMD . Dr Nicolasa López
--- NOTE | 2016-05-17 12:43 | PN ---
DATE: 05/17/2016 REASON FOR CONSULTATION AND FOLLOWUP: Cardiac evaluation, admitted with near syncope, rule out conge stive heart failure. BRIEF CLINICAL HISTORY: This is a 71-year-old female with past medical history significant for COPD, back pain, gait instability, tremor. Denies any chest pain, shortness of breath, any palpitation, c linically not in failure. PHYSICAL EXAMINATION: As follows: VITAL SIGNS: Temperature afebrile, heart rate 64, blood pressure 106/64. HEENT: PERRLA. Extraocular muscles intact. NECK: Supple. No carotid bruits. No thyromegaly. CHEST: Clear to auscultation. HEART: S1, S2 regular. ABDOMEN: Soft. EXTREMITIES: Clubbing and cyanosis negative. BLOOD WORKUP: As follows: WBC ____, hemoglobin ____, hematocrit 35.7, platelet count 166. Chemistr y shows sodium 137, potassium 3.8, chloride 90, carbon dioxide ____, anion gap of 9, BUN 15, creatini ne 0.9. CT scan suggestive of left lower lobe pneumonia, mild congestion. Clinically, patient is no t in heart failure. No evidence of acute coronary syndrome. The patient's echo 03/21/2016 shows per icardial effusion, normal left ventricular function, normal wall thickness, ejection fraction 76%, tr david tricuspid regurgitation, RV systolic pressure 18. RECOMMENDATION: Continue aggressive treatment of COPD. Continue CPAP. We will follow with you. Thank you, Dr. López, for providing us the opportunity in taking care of the patient. We will follow with you. Nura Dotson MD cc: [id number] TT: 05/17/2016 12:43:08 Confirmation # [id number] Dictation # [id number]
[2016-05-18 07:41] LABS: ADD MANUAL DIFF? NO
[2016-05-18 07:44] LABS: BASO # 0.02 K/mm3 (0.0-2.0); BASO % 0.3 % (0.0-3.0); EOS # 0.1 (0.0-0.7); EOS % 1.7 % (1.5-5.0); GRAN # 3.73 (1.4-6.5); GRAN % 57.3 % (50.0-68.0); HEMATOCRIT 37.2 % (36.0-48.0); LYMPH % 30.9 % (22.0-35.0); MEAN CELL VOLUME 79.5 fL (80.0-105.0); MEAN CORPUSCULAR HEMOGLOBIN 24.8 pg (25.0-35.0); MEAN CORPUSCULAR HGB CONC 31.2 g/dl (31.0-37.0); MEAN PLATELET VOLUME 10.9 fl (7.0-11.0); MONO # 0.6 (0.1-0.6); MONO % 9.8 % (1.0-6.0); PLATELET COUNT 180 10^3/uL (120.0-450.0); RED CELL DISTRIBUTION WIDTH 14.4 % (11.5-14.5); WHITE BLOOD COUNT 6.5 10^3/ul (4.5-11.0)
[2016-05-18 08:01] LABS: ALB/GLOB RATIO 1.1 (1.1-1.8); ALKALINE PHOSPHATASE 62 U/L (38-133); ALT/SGPT 103 U/L (7-56); AST/SGOT 44 U/L (15-39); BILIRUBIN,TOTAL 0.5 mg/dL (0.2-1.3); BLOOD UREA NITROGEN 17 mg/dL (7-21); CALCIUM 8.9 mg/dL (8.4-10.5); CARBON DIOXIDE 38 mmol/L (21-33); CHLORIDE 94 mmol/L (95-110); GFR AFRICAN-AMERICAN > 60; GLUCOSE,RANDOM 84 mg/dL (70-110); POTASSIUM 4.2 mmol/L (3.6-5.0); SODIUM 138 mmol/L (132-148); TOTAL PROTEIN 6.8 g/dL (5.8-8.3)
[2016-05-18 08:08] VITALS: BP 118/68; TEMP 97.8; O2SAT 100
[2016-05-18] MEDS: Pantoprazole 40 mg EC Tab PO SCH (10:20)
[2016-05-18] MEDS: Fluticasone Nasal 50 mcg/Spray NS SCH ×2 (10:20→17:40)
[2016-05-18] MEDS: Albuterol-Ipratrop 3 mg / 0.5 (3 ml) UD IH SCH ×2 (11:18→15:35)
[2016-05-18 11:27] LABS: ARTERIAL BLOOD GAS HCO3 39.6 mmol/L (21-28); ARTERIAL BLOOD GAS O2 CAPACITY 15.5 mL/dl (16-24); ARTERIAL BLOOD GAS O2 CONTENT 14.8 ML/dl (15-23); ARTERIAL BLOOD GAS PH 7.45 (7.35-7.45); ARTERIAL BLOOD HGB O2 SAT 92.3 % (95.0-98.0); CARBOXYHEMOGLOBIN 2.2 % (0.5-1.5); HHB 4.6 % (0-5); METHEMOGLOBIN 0.9 % (0.0-3.0)
[2016-05-18 11:39] VITALS: PULSE 63
--- NOTE | 2016-05-18 11:45 | PN ---
DATE: 05/18/2016 The patient in room 362, bed 1. REASON FOR CONSULTATION AND FOLLOWUP: Near syncope, cardiac evaluation, rule out congestive heart fa ilure. HISTORY OF PRESENT ILLNESS: The patient is a 71-year-old female with past medical history significan t for COPD, back pain, gait instability, tremor. Denies any chest pain, shortness of breath, palpita tion. The patient is sitting in chair without any cardiac symptoms. PHYSICAL EXAMINATION: VITAL SIGNS: Blood pressure 118/68, respirations 20, pulse 57, temperature 97.8. HEAD: Normocephalic. EYES: Pupils normal. Conjunctivae slightly pale. NECK: JVP low. Carotid equal. THORAX: AP diameter normal. LUNGS: Clear. CARDIOVASCULAR: S1, S2. ABDOMEN: Soft, no tenderness, no organomegaly. EXTREMITIES: No clubbing, no cyanosis, no edema. LABORATORY DATA: WBC 6.5, hemoglobin 11.6, hematocrit 37.2, platelets 180. Sodium 138, potassium 4. 2, BUN 17, creatinine 0.5. AST 44, ALT 103, total protein and albumin normal. DIAGNOSES: Near syncope, no evidence of congestive heart failure. Echo on 03/21/2016 shows normal le ft ventricular function, normal wall thickness, ejection fraction 76%, trace tricuspid regurgitation, right ventricular systolic pressure 18, chronic obstructive pulmonary disease. PLAN: To continue aggressive treatment for COPD. Clinically, cardiac status is stable. The patient is on aspirin 81 mg daily, DuoNeb hand nebulizer therapy, Mysoline 50 mg p.o. at bedtime, Protonix 4 0 daily. We will follow closely with you. Nura Alva MD cc: [id number] TT: 05/18/2016 11:44:37 Confirmation # [id number] Dictation # [id number]
--- NOTE | 2016-05-18 12:57 | CP.PCM.DIS ---
<Uma Landeros - Last Filed: 05/18/16 12:51> Provider - Provider Date of Admission: 05/14/16 19:28 Attending physician: Nicolasa López MD Primary care physician: Claritza Uriarte MD Consults: Cardio : Dr. Dotson Time Spent in preparation of Discharge (in minutes): 45 Hospital Course - Lab Results Lab Results: Most Recent Lab Values WBC 6.5 10^3/ul (4.5-11.0) 05/18/16 07:00 RBC 4.68 10^6/uL (3.5-6.1) 05/18/16 07:00 Hgb 11.6 gm/dL (12.0-16.0) L 05/18/16 07:00 Hct 37.2 % (36.0-48.0) 05/18/16 07:00 MCV 79.5 fL (80.0-105.0) L 05/18/16 07:00 MCH 24.8 pg (25.0-35.0) L 05/18/16 07:00 MCHC 31.2 g/dl (31.0-37.0) 05/18/16 07:00 RDW 14.4 % (11.5-14.5) 05/18/16 07:00 Plt Count 180 10^3/uL (120.0-450.0) 05/18/16 07:00 MPV 10.9 fl (7.0-11.0) 05/18/16 07:00 Gran % 57.3 % (50.0-68.0) 05/18/16 07:00 Lymph % (Auto) 30.9 % (22.0-35.0) 05/18/16 07:00 [place] % (Auto) 9.8 % (1.0-6.0) H 05/18/16 07:00 Eos % (Auto) 1.7 % (1.5-5.0) 05/18/16 07:00 Baso % (Auto) 0.3 % (0.0-3.0) 05/18/16 07:00 Gran # 3.73 (1.4-6.5) 05/18/16 07:00 Lymph # 2.0 (1.2-3.4) 05/18/16 07:00 [place] # 0.6 (0.1-0.6) 05/18/16 07:00 Eos # 0.1 (0.0-0.7) 05/18/16 07:00 Baso # 0.02 K/mm3 (0.0-2.0) 05/18/16 07:00 PT 11.5 Seconds (9.9-11.8) 05/15/16 09:05 INR 1.06 (0.93-1.08) 05/15/16 09:05 APTT 25.2 Seconds (23.7-30.8) 05/14/16 16:50 pCO2 57 mm/Hg (35-45) H 05/18/16 11:20 pO2 61.0 mm/Hg (80-100) L 05/18/16 11:20 HCO3 39.6 mmol/L (21-28) H 05/18/16 11:20 ABG pH 7.45 (7.35-7.45) 05/18/16 11:20 ABG Total CO2 41.3 mmol.L (22-28) H 05/18/16 11:20 ABG O2 Saturation 95.3 % (95-98) 05/18/16 11:20 ABG O2 Content 14.8 ML/dl (15-23) L 05/18/16 11:20 ABG Base Excess 13.4 mmol/L (-2.0-3.0) H 05/18/16 11:20 ABG Hemoglobin 11.4 g/dL (11.7-17.4) L 05/18/16 11:20 ABG Carboxyhemoglobin 2.2 % (0.5-1.5) H 05/18/16 11:20 POC ABG HHb (Measured) 4.6 % (0-5) 05/18/16 11:20 ABG Methemoglobin 0.9 % (0.0-3.0) 05/18/16 11:20 ABG O2 Capacity 15.5 mL/dl (16-24) L 05/18/16 11:20 Hgb O2 Saturation 92.3 % (95.0-98.0) L 05/18/16 11:20 FiO2 21.0 % 05/18/16 11:20 Sodium 138 mmol/L (132-148) 05/18/16 07:00 Potassium 4.2 mmol/L (3.6-5.0) 05/18/16 07:00 Chloride 94 mmol/L (95-110) L 05/18/16 07:00 Carbon Dioxide 38 mmol/L (21-33) H 05/18/16 07:00 Anion Gap 10 (10-20) 05/18/16 07:00 BUN 17 mg/dL (7-21) 05/18/16 07:00 Creatinine 0.5 mg/dL (0.5-1.4) 05/18/16 07:00 Est GFR ( Amer) > 60 05/18/16 07:00 Est GFR (Non-Af Amer) > 60 05/18/16 07:00 Random Glucose 84 mg/dL (70-110) 05/18/16 07:00 Calcium 8.9 mg/dL (8.4-10.5) 05/18/16 07:00 Phosphorus 3.7 mg/dL (2.5-4.5) 05/14/16 16:50 Magnesium 2.1 mg/dL (1.7-2.2) 05/14/16 16:50 Total Bilirubin 0.5 mg/dL (0.2-1.3) 05/18/16 07:00 AST 44 U/L (15-39) H 05/18/16 07:00 ALT 103 U/L (7-56) H 05/18/16 07:00 Alkaline Phosphatase 62 U/L (38-133) 05/18/16 07:00 Lactate Dehydrogenase 451 U/L (333-699) 05/16/16 07:00 Total Creatine Kinase 29 U/L (35-230) L 05/16/16 07:00 Troponin I 0.07 ng/mL 05/16/16 07:00 NT-Pro-B Natriuret Pep 3820 pg/mL (0-450) H 05/14/16 16:50 Total Protein 6.8 g/dL (5.8-8.3) 05/18/16 07:00 Albumin 3.5 g/dL (3.0-4.8) 05/18/16 07:00 Globulin 3.3 gm/dL 05/18/16 07:00 Albumin/Globulin Ratio 1.1 (1.1-1.8) 05/18/16 07:00 Triglycerides 91 mg/dL (35-160) 05/16/16 07:00 Cholesterol 145 mg/dL (130-200) 05/16/16 07:00 LDL Cholesterol Direct 77 mg/dL (0-129) 05/16/16 07:00 HDL Cholesterol 45 mg/dL (29-60) 05/16/16 07:00 Procalcitonin < 0.05 NG/ML (0.19-0.49) L 05/16/16 08:00 TSH 3rd Generation 1.17 mIU/mL (0.46-4.68) 05/16/16 07:00 Urine Color Yellow (YELLOW) 05/14/16 18:10 Urine Appearance Slight-cloudy (CLEAR) 05/14/16 18:10 Urine pH 6.0 (4.7-8.0) 05/14/16 18:10 Ur Specific [place] 1.025 (1.005-1.035) 05/14/16 18:10 Urine Protein 30 mg/dL (<30 mg/dL) H 05/14/16 18:10 Urine Glucose (UA) Negative mg/dL (NEGATIVE) 05/14/16 18:10 Urine Ketones Negative mg/dL (NEGATIVE) 05/14/16 18:10 Urine Blood Small (NEGATIVE) H 05/14/16 18:10 Urine Nitrate Negative (NEGATIVE) 05/14/16 18:10 Urine Bilirubin Negative (NEGATIVE) 05/14/16 18:10 Urine Urobilinogen 0.2 E.U./dL (<1 E.U./dL) 05/14/16 18:10 Ur Leukocyte Esterase Trace Payal/uL (NEGATIVE) H 05/14/16 18:10 Urine RBC 2 - 5 /hpf (0-2) 05/14/16 18:10 Urine WBC 1 - 3 /hpf (0-6) 05/14/16 18:10 Ur Epithelial Cells 1 - 3 /hpf (0-5) 05/14/16 18:10 Urine Bacteria Few (NEG) 05/14/16 18:10 Ur Random Sodium 89 meq/L 05/15/16 17:53 Ur Random Potassium 9.8 meq/L 05/15/16 17:53 Urine Opiates Screen Negative (NEGATIVE) 05/15/16 17:53 Urine Methadone Screen Negative (NEGATIVE) 05/15/16 17:53 Ur Barbiturates Screen Negative (NEGATIVE) 05/15/16 17:53 Ur Phencyclidine Scrn Negative (NEGATIVE) 05/15/16 17:53 Ur Amphetamines Screen Negative (NEGATIVE) 05/15/16 17:53 U Benzodiazepines Scrn Negative (NEGATIVE) 05/15/16 17:53 U Oth Cocaine Metabols Negative (NEGATIVE) 05/15/16 17:53 U Cannabinoids Screen Negative (NEGATIVE) 05/15/16 17:53 Anti-Mitochondrial Ab Negative (Negative) 05/15/16 10:05 Anti-Smooth Muscle Ab Negative (Negative) 05/15/16 10:05 Hepatitis A IgM Ab Negative (NEGATIVE) 05/15/16 00:50 Hep Bs Antigen Negative (NEGATIVE) 05/15/16 00:50 Hep B Core IgM Ab Negative (NEGATIVE) 05/15/16 00:50 Hepatitis C Antibody Negative (NEGATIVE) 05/15/16 00:50 Influenza Typ A,B (EIA) Negative for flu a/b (NEGATIVE) 05/14/16 22:00 - Hospital Course Hospital Course: This is a 71 yo female with past medical hx of back pain, gait instability, essential tremor, asthma presenting with near syncope and fall. Pt was admitted in March for similar issue. She frequently feels "shaky" upon standing and says this has been going on for a year. She does not say she feels dizzy or lightheaded. She says she fell at home twice today. She attributes this to not eating enough. She experience no aura or prodrome prior to falling. She denies hitting her head or LOC. She denies seizure activity or tongue biting. She denies bowel or bladder incontinence. She says the shakiness and unsteadiness comes and goes. She reports some chest pain, substernal, no radiation, that developed while she was lying in bed in ER. It is gone at time of evaluation. She reports a cough with white phlegm that has been going on for a while. She was given abx but they have not helped. Denies shortness of breath, urinary sx, blood in BMs. ABG showed respiratory acidosis likely 2/2 COPD. Pt was placed on CPAP and BiPAP at night. Also treated with PRN Duoneb. Pt felt better. PT was ordered. Pt ambulated with help. ABG improved throughout the hospital stay. Pt was cleared to go home by Cardio. TCU rejected. PT was approved to go to [facility]. Pt refused and wishes to go home. Risk was explained. Pt understood. Pt was instructed to f/u with PMD or come to free [facility]. Pt didn't qualify for CPAP at home. Discharge Exam - Head Exam Head Exam: ATRAUMATIC, NORMOCEPHALIC - Eye Exam Eye Exam: EOMI, Normal appearance, PERRL Pupil Exam: NORMAL ACCOMODATION, PERRL - Respiratory Exam Respiratory Exam: NORMAL BREATHING PATTERN, UNREMARKABLE - Cardiovascular Exam Cardiovascular Exam: REGULAR RHYTHM - GI/Abdominal Exam GI & Abdominal Exam: Unremarkable - Exam Exam: NORMAL INSPECTION - Neurological Exam Neurological exam: Alert, CN II-XII Intact, Normal Gait, Oriented x3, Reflexes Normal - Psychiatric Exam Psychiatric exam: Normal Mood - Skin Skin Exam: Dry, Intact, Normal Color, Warm Discharge Plan - Discharge Medications Prescriptions: Fluticasone/Salmeterol 100/50 [Advair Diskus 100/50] 1 puff IH Q12 #1 puff Aspirin [Aspirin Chewable] 81 mg PO DAILY #20 chew Citalopram Hydrobromide [Celexa] 20 mg PO DAILY #30 tablet Fluticasone Nasal [Flonase] 1 actuation NS BID #20 spr Multivitamin [Multivitamins] 1 each PO DAILY #20 capsule Primidone [Mysoline] 50 mg PO HS #20 tab Montelukast [Singulair] 10 mg PO HS #20 tab Benzonatate [Tessalon Perles] 100 mg PO TID #20 sgl Albuterol HFA [Ventolin HFA 90 mcg/actuation (8 g)] 2 puff IH Q4 #1 inhaler - Follow Up Plan Condition: GOOD Disposition: HOME/ ROUTINE Instructions: Heart Failure (DC), Dyspnea (GEN) Additional Instructions: If you experience any shortness of breath chest pain, nausea or vomiting please call Primary physician and go to nearest Emergency room. Follow up with primary physician in 1 week. Take prescribed medications sent to Pharmacy Referrals: Claritza Uriarte MD [Primary Care Provider] - <Nicolasa López - Last Filed: 05/18/16 16:29> Provider - Provider Date of Admission: 05/14/16 19:28 Attending physician: Nicolasa López MD Primary care physician: Claritza Uriarte MD Hospital Course - Lab Results Lab Results: Most Recent Lab Values WBC 6.5 10^3/ul (4.5-11.0) 05/18/16 07:00 RBC 4.68 10^6/uL (3.5-6.1) 05/18/16 07:00 Hgb 11.6 gm/dL (12.0-16.0) L 05/18/16 07:00 Hct 37.2 % (36.0-48.0) 05/18/16 07:00 MCV 79.5 fL (80.0-105.0) L 05/18/16 07:00 MCH 24.8 pg (25.0-35.0) L 05/18/16 07:00 MCHC 31.2 g/dl (31.0-37.0) 05/18/16 07:00 RDW 14.4 % (11.5-14.5) 05/18/16 07:00 Plt Count 180 10^3/uL (120.0-450.0) 05/18/16 07:00 MPV 10.9 fl (7.0-11.0) 05/18/16 07:00 Gran % 57.3 % (50.0-68.0) 05/18/16 07:00 Lymph % (Auto) 30.9 % (22.0-35.0) 05/18/16 07:00 [place] % (Auto) 9.8 % (1.0-6.0) H 05/18/16 07:00 Eos % (Auto) 1.7 % (1.5-5.0) 05/18/16 07:00 Baso % (Auto) 0.3 % (0.0-3.0) 05/18/16 07:00 Gran # 3.73 (1.4-6.5) 05/18/16 07:00 Lymph # 2.0 (1.2-3.4) 05/18/16 07:00 [place] # 0.6 (0.1-0.6) 05/18/16 07:00 Eos # 0.1 (0.0-0.7) 05/18/16 07:00 Baso # 0.02 K/mm3 (0.0-2.0) 05/18/16 07:00 PT 11.5 Seconds (9.9-11.8) 05/15/16 09:05 INR 1.06 (0.93-1.08) 05/15/16 09:05 APTT 25.2 Seconds (23.7-30.8) 05/14/16 16:50 pCO2 57 mm/Hg (35-45) H 05/18/16 11:20 pO2 61.0 mm/Hg (80-100) L 05/18/16 11:20 HCO3 39.6 mmol/L (21-28) H 05/18/16 11:20 ABG pH 7.45 (7.35-7.45) 05/18/16 11:20 ABG Total CO2 41.3 mmol.L (22-28) H 05/18/16 11:20 ABG O2 Saturation 95.3 % (95-98) 05/18/16 11:20 ABG O2 Content 14.8 ML/dl (15-23) L 05/18/16 11:20 ABG Base Excess 13.4 mmol/L (-2.0-3.0) H 05/18/16 11:20 ABG Hemoglobin 11.4 g/dL (11.7-17.4) L 05/18/16 11:20 ABG Carboxyhemoglobin 2.2 % (0.5-1.5) H 05/18/16 11:20 POC ABG HHb (Measured) 4.6 % (0-5) 05/18/16 11:20 ABG Methemoglobin 0.9 % (0.0-3.0) 05/18/16 11:20 ABG O2 Capacity 15.5 mL/dl (16-24) L 05/18/16 11:20 Hgb O2 Saturation 92.3 % (95.0-98.0) L 05/18/16 11:20 FiO2 21.0 % 05/18/16 11:20 Sodium 138 mmol/L (132-148) 05/18/16 07:00 Potassium 4.2 mmol/L (3.6-5.0) 05/18/16 07:00 Chloride 94 mmol/L (95-110) L 05/18/16 07:00 Carbon Dioxide 38 mmol/L (21-33) H 05/18/16 07:00 Anion Gap 10 (10-20) 05/18/16 07:00 BUN 17 mg/dL (7-21) 05/18/16 07:00 Creatinine 0.5 mg/dL (0.5-1.4) 05/18/16 07:00 Est GFR ( Amer) > 60 05/18/16 07:00 Est GFR (Non-Af Amer) > 60 05/18/16 07:00 Random Glucose 84 mg/dL (70-110) 05/18/16 07:00 Calcium 8.9 mg/dL (8.4-10.5) 05/18/16 07:00 Phosphorus 3.7 mg/dL (2.5-4.5) 05/14/16 16:50 Magnesium 2.1 mg/dL (1.7-2.2) 05/14/16 16:50 Total Bilirubin 0.5 mg/dL (0.2-1.3) 05/18/16 07:00 AST 44 U/L (15-39) H 05/18/16 07:00 ALT 103 U/L (7-56) H 05/18/16 07:00 Alkaline Phosphatase 62 U/L (38-133) 05/18/16 07:00 Lactate Dehydrogenase 451 U/L (333-699) 05/16/16 07:00 Total Creatine Kinase 29 U/L (35-230) L 05/16/16 07:00 Troponin I 0.07 ng/mL 05/16/16 07:00 NT-Pro-B Natriuret Pep 3820 pg/mL (0-450) H 05/14/16 16:50 Total Protein 6.8 g/dL (5.8-8.3) 05/18/16 07:00 Albumin 3.5 g/dL (3.0-4.8) 05/18/16 07:00 Globulin 3.3 gm/dL 05/18/16 07:00 Albumin/Globulin Ratio 1.1 (1.1-1.8) 05/18/16 07:00 Triglycerides 91 mg/dL (35-160) 05/16/16 07:00 Cholesterol 145 mg/dL (130-200) 05/16/16 07:00 LDL Cholesterol Direct 77 mg/dL (0-129) 05/16/16 07:00 HDL Cholesterol 45 mg/dL (29-60) 05/16/16 07:00 Procalcitonin < 0.05 NG/ML (0.19-0.49) L 05/16/16 08:00 TSH 3rd Generation 1.17 mIU/mL (0.46-4.68) 05/16/16 07:00 Urine Color Yellow (YELLOW) 05/14/16 18:10 Urine Appearance Slight-cloudy (CLEAR) 05/14/16 18:10 Urine pH 6.0 (4.7-8.0) 05/14/16 18:10 Ur Specific [place] 1.025 (1.005-1.035) 05/14/16 18:10 Urine Protein 30 mg/dL (<30 mg/dL) H 05/14/16 18:10 Urine Glucose (UA) Negative mg/dL (NEGATIVE) 05/14/16 18:10 Urine Ketones Negative mg/dL (NEGATIVE) 05/14/16 18:10 Urine Blood Small (NEGATIVE) H 05/14/16 18:10 Urine Nitrate Negative (NEGATIVE) 05/14/16 18:10 Urine Bilirubin Negative (NEGATIVE) 05/14/16 18:10 Urine Urobilinogen 0.2 E.U./dL (<1 E.U./dL) 05/14/16 18:10 Ur Leukocyte Esterase Trace Payal/uL (NEGATIVE) H 05/14/16 18:10 Urine RBC 2 - 5 /hpf (0-2) 05/14/16 18:10 Urine WBC 1 - 3 /hpf (0-6) 05/14/16 18:10 Ur Epithelial Cells 1 - 3 /hpf (0-5) 05/14/16 18:10 Urine Bacteria Few (NEG) 05/14/16 18:10 Ur Random Sodium 89 meq/L 05/15/16 17:53 Ur Random Potassium 9.8 meq/L 05/15/16 17:53 Urine Opiates Screen Negative (NEGATIVE) 05/15/16 17:53 Urine Methadone Screen Negative (NEGATIVE) 05/15/16 17:53 Ur Barbiturates Screen Negative (NEGATIVE) 05/15/16 17:53 Ur Phencyclidine Scrn Negative (NEGATIVE) 05/15/16 17:53 Ur Amphetamines Screen Negative (NEGATIVE) 05/15/16 17:53 U Benzodiazepines Scrn Negative (NEGATIVE) 05/15/16 17:53 U Oth Cocaine Metabols Negative (NEGATIVE) 05/15/16 17:53 U Cannabinoids Screen Negative (NEGATIVE) 05/15/16 17:53 Anti-Mitochondrial Ab Negative (Negative) 05/15/16 10:05 Anti-Smooth Muscle Ab Negative (Negative) 05/15/16 10:05 Hepatitis A IgM Ab Negative (NEGATIVE) 05/15/16 00:50 Hep Bs Antigen Negative (NEGATIVE) 05/15/16 00:50 Hep B Core IgM Ab Negative (NEGATIVE) 05/15/16 00:50 Hepatitis C Antibody Negative (NEGATIVE) 05/15/16 00:50 Influenza Typ A,B (EIA) Negative for flu a/b (NEGATIVE) 05/14/16 22:00 Attending/Attestation - Attestation I have personally seen and examined this patient.: Yes I have fully participated in the care of the patient.: Yes I have reviewed all pertinent clinical information, including history, physical exam and plan: Yes Notes (Text): Patient seen and examined with resident at the bedside. This is 71 year old female with history of chronic back pain, chronic lumbar spine fracture, essential tremor, gait instability and asthma who was recently discharged from the hospital s/p fall and generalized weakness who got admitted with dizziness and fall which was thought to be secondary to myopathy, deconditioning, hypotension or poor po intake. CXR showed vascular congestion and BNP was elevated however echo showed normal LVEF. Patient does not have CHF. Cardiology and neuro consult appreciated. PT recommended [facility] however patient refused. She insisted to go home and states that sister will take care of her. Patient is alert, awake, oriented to time, place and person. We had a detailed discussion with the patient. She absolutely does not want to go to [facility]. All the risk was explained in [place]. Patient verbalized understanding. Will discuss with patient and pillowcase maker again. Patient has elevated LFT's secondary to hepatic steatosis. Upon discharge patient will follow-up with PMD . Dr Nicolasa López
== END 2016-05-18 19:26 | disposition home or self-care (01) | DRG 141 ==
LOC: ED 16:19 → ERH 19:28 → 2RSO 20:50 → 3RNO 05-16 19:26 → UNDODISIN 05-18 18:16
PROVIDERS: ADMIT Internal Medicine; ATTEND Hospitalist
PROC: 5A09457 Assistance with Respiratory Ventilation, 24-96 Consecutive Hours, Continuous Positive Airway Pressure (ICD-10-PCS; principal; 2016-05-15)
PROC: 3E0F7GC Introduction of Other Therapeutic Substance into Respiratory Tract, Via Natural or Artificial Opening (ICD-10-PCS; 2016-05-18)
DX: R55 Syncope and collapse (principal); R29.6 Repeated falls; E87.5 Hyperkalemia; E87.4 Mixed disorder of acid-base balance; J44.9 Chronic obstructive pulmonary disease, unspecified; K76.0 Fatty (change of) liver, not elsewhere classified; J45.909 Unspecified asthma, uncomplicated; G25.0 Essential tremor; R26.81 Unsteadiness on feet; M54.5 Low back pain; G89.29 Other chronic pain; R79.89 Other specified abnormal findings of blood chemistry; I10 Essential (primary) hypertension; Z91.81 History of falling; Z90.710 Acquired absence of both cervix and uterus

== ENCOUNTER 2016-07-27 07:43 | Inpatient (IN) | payer MEDICAID ==
[2016-07-27 07:56] VITALS: BMI 21.7
[2016-07-27 08:32] LABS: ADD MANUAL DIFF? NO
[2016-07-27 08:35] LABS: BASO # 0.01 K/mm3 (0.0-2.0); BASO % 0.2 % (0.0-3.0); EOS # 0.2 (0.0-0.7); EOS % 2.8 % (1.5-5.0); GRAN # 3.96 (1.4-6.5); HEMATOCRIT 45.1 % (36.0-48.0); LYMPH # 1.8 (1.2-3.4); MEAN CELL VOLUME 83.1 fL (80.0-105.0); MEAN CORPUSCULAR HEMOGLOBIN 24.5 pg (25.0-35.0); MEAN CORPUSCULAR HGB CONC 29.5 g/dl (31.0-37.0); MEAN PLATELET VOLUME 10.4 fl (7.0-11.0); MONO # 0.5 (0.1-0.6); PLATELET COUNT 196 10^3/uL (120.0-450.0); RED CELL DISTRIBUTION WIDTH 14.9 % (11.5-14.5); WHITE BLOOD COUNT 6.5 10^3/ul (4.5-11.0)
[2016-07-27 08:43] LABS: GLUCOSE,RANDOM 92 mg/dL (70-110)
[2016-07-27 08:44] LABS: ALB/GLOB RATIO 1.1 (1.1-1.8); ALKALINE PHOSPHATASE 54 U/L (38-133); ALT/SGPT 71 U/L (7-56); AST/SGOT 61 U/L (15-39); BILIRUBIN,TOTAL 0.4 mg/dL (0.2-1.3); BLOOD UREA NITROGEN 21 mg/dL (7-21); CALCIUM 8.3 mg/dL (8.4-10.5); CHLORIDE 94 mmol/L (98-107); GFR AFRICAN-AMERICAN > 60; POTASSIUM 4.8 mmol/L (3.6-5.0); SODIUM 139 mmol/L (132-148)
[2016-07-27 08:46] LABS: INR 1.06 (0.93-1.08)
[2016-07-27 08:54] LABS: CARBON DIOXIDE 40 mmol/L (21-33)
[2016-07-27 08:55] LABS: TROPONIN I < 0.01 ng/mL
[2016-07-27 09:35] LABS: URINE BILIRUBIN NEGATIVE (NEGATIVE); URINE BLOOD SMALL (NEGATIVE); URINE GLUCOSE (UA) NEGATIVE (NEGATIVE); URINE KETONE NEGATIVE (NEGATIVE); URINE LEUKOCYTE ESTERASE TRACE Leu/uL (NEGATIVE); URINE PROTEIN NEGATIVE mg/dL (<30 mg/dL); URINE UROBILINOGEN 0.2 E.U./dL (<1 E.U./dL)
[2016-07-27 09:40] LABS: URINE APPEARANCE CLEAR (CLEAR); URINE COLOR YELLOW (YELLOW)
[2016-07-27 09:43] LABS: URINE WBC 0 - 2 /hpf (0-6)
[2016-07-27 09:44] LABS: URINE BACTERIA TRACE (NEG); URINE EPITHELIAL CELLS 0 - 2 /hpf (0-5)
--- NOTE | 2016-07-27 09:53 | RAD ---
HISTORY: Weakness COMPARISON: 05/14/2016. FINDINGS: LUNGS: There is worsening pulmonary venous congestion and prominent central vasculature. PLEURA: No significant pleural effusion identified, no pneumothorax apparent. CARDIOVASCULAR: The heart is normal in size. OSSEOUS STRUCTURES: No significant abnormalities. VISUALIZED UPPER ABDOMEN: Normal. OTHER FINDINGS: None. IMPRESSION: Worsening pulmonary venous congestion. No focal consolidation.
--- NOTE | 2016-07-27 10:47 | ED PDOC ---
Arrival/HPI - General Chief Complaint: Weakness/Neurological Deficit Time Seen by Provider: 07/27/16 08:03 Historian: Patient - History of Present Illness Narrative History of Present Illness (Text): 07/27/16 08:05 A 71 year old female with a history of tremors presents to the emergency department with worsened tremors and generalized weakness over the past few days. She states that she has decreased strength in the extremities and felt like she was going to fall. She reports she lives alone. Patient denies nausea, vomiting, diarrhea, headaches, neck pain, or any other symptoms at this time. PMD: Dr. Uriarte Symptom Onset: Gradual Symptom Course: Worsening Context: Home Associated Symptoms (Text): None Past Medical History - Provider Review Nursing Documentation Reviewed: Yes - Past History Past History: No Previous - Infectious Disease Hx of Infectious Diseases: None - Tetanus Immunization Tetanus Immunization: Unknown - Past Medical History Past Medical History: No Previous - Cardiac Hx Cardiac Disorders: Yes Hx Hypertension: Yes - Pulmonary Hx Respiratory Disorders: Yes Hx Asthma: Yes - Neurological Hx Neurological Disorder: No Other/Comment: abn ct head - HEENT Hx HEENT Disorder: No - Renal Hx Renal Disorder: No - Endocrine/Metabolic Hx Endocrine Disorders: No - Hematological/Oncological Hx Blood Disorders: No - Integumentary Hx Dermatological Disorder: Yes (MULTIPLE BROWN SPOTTING TO RIGHT THIGH AND BUTTOCKS AND BACK.) - Musculoskeletal/Rheumatological Hx Musculoskeletal Disorders: Yes Hx Falls: Yes (fell 3x's today) - Gastrointestinal Hx Gastrointestinal Disorders: Yes (CONSTIPATION) - Genitourinary/Gynecological Hx Genitourinary Disorders: No - Psychiatric Hx Psychophysiologic Disorder: No Hx Substance Use: No - Past Surgical History Past Surgical History: No Previous - Surgical History Hx Hysterectomy: Yes (1996) - Anesthesia Hx Anesthesia: No Hx Anesthesia Reactions: No Hx Malignant Hyperthermia: No - Suicidal Assessment Feels Threatened In Home Enviroment: No Family/Social History - Physician Review Nursing Documentation Reviewed: Yes Family/Social History: Unknown Family HX Smoking Status: Never Smoked Hx Alcohol Use: No Hx Substance Use: No Hx Substance Use Treatment: No Allergies/Home Meds Allergies/Adverse Reactions: Allergies No Known Allergies Allergy (Verified 07/27/16 07:55) Home Medications: Home Meds Medication Instructions Recorded Confirmed Propranolol [Inderal] 20 mg PO BID 07/27/16 07/27/16 Review of Systems - Physician Review All systems were reviewed & negative as marked: Yes - Review of Systems Constitutional: Other (Generalized weakness). absent: Fevers Respiratory: absent: SOB Cardiovascular: absent: Chest Pain Gastrointestinal: absent: Diarrhea, Nausea, Vomiting Musculoskeletal: absent: Neck Pain Neurological: Other (Tremors). absent: Headache Physical Exam Vital Signs Reviewed: Yes Vital Signs Temp Pulse Resp BP Pulse Ox 07/27/16 10:55 87 18 133/78 100 07/27/16 09:36 79 18 136/83 100 07/27/16 07:57 99.1 F 89 17 126/80 93 L Temperature: Afebrile Blood Pressure: Normal Pulse: Regular Respiratory Rate: Normal Appearance: Positive for: Well-Appearing, Non-Toxic, Comfortable Pain Distress: None Mental Status: Positive for: Alert and Oriented X 3 Finger Stick Blood Glucose: 91 - Systems Exam Head: Present: Atraumatic, Normocephalic Pupils: Present: PERRL Extroacular Muscles: Present: EOMI Conjunctiva: Present: Normal Mouth: Present: Moist Mucous Membranes Neck: Present: Normal Range of Motion Respiratory/Chest: Present: Clear to Auscultation, Good Air Exchange. No: Respiratory Distress, Accessory Muscle Use Cardiovascular: Present: Regular Rate and Rhythm, Normal S1, S2. No: Murmurs Abdomen: Present: Normal Bowel Sounds. No: Tenderness, Distention, Peritoneal Signs Upper Extremity: Present: Normal Inspection. No: Cyanosis, Edema Lower Extremity: Present: Normal Inspection. No: Edema Neurological: Present: GCS=15, CN II-XII Intact, Speech Normal, Other (Mild tremor) Skin: Present: Warm, Dry, Normal Color. No: Rashes Psychiatric: Present: Alert, Oriented x 3, Normal Insight, Normal Concentration Medical Decision Making ED Course and Treatment: Impression: A 71 year old female complains of tremors, which have worsened over the past few days. Differential Diagnosis included but are not limited to: suspect essential tremor. noted pt with w/u similar few months ago. Plan: -- Chest X-ray -- EKG -- Reassess and disposition Prior Visits: Notes and results from previous visits were reviewed. Patient was last seen in the Emergency department on Progress Notes: Chest X-Ray Salesperson Meats : Noemí Pickens MD IMPRESSION: Worsening pulmonary venous congestion. No focal consolidation. EKG: Ordered, reviewed, and independently interpreted the EKG. Rate : 89 BPM Rhythm : NSR Interpretation : No ST/T changes 07/27/16 11:43 Patient with known history of essential tremors and needs physical therapy evaluation, for gait eval, as unsteady gait. pt states she lives alone for most of day. Attempted to reach counseling case manager Ryanne unable to reach. pt is unsafe discharge, accepted by Dr. Blackwell. Patient agreeable to subacute rehab, but will need PT eval for gait dysfunction. 07/27/16 13:17 - Lab Interpretations Lab Results: 07/27/16 08:15 07/27/16 08:15 Lab Results 07/27/16 10:09: NT-Pro-B Natriuret Pep 405 07/27/16 09:00: Urine Color Yellow, Urine Appearance Clear, Urine pH 6.0, Ur Specific [place] 1.020, Urine Protein Negative, Urine Glucose (UA) Negative, Urine Ketones Negative, Urine Blood Small H, Urine Nitrate Negative, Urine Bilirubin Negative, Urine Urobilinogen 0.2, Ur Leukocyte Esterase Trace H, Urine RBC 1 - 3, Urine WBC 0 - 2, Ur Epithelial Cells 0 - 2, Urine Bacteria Trace 07/27/16 08:15: Sodium 139, Potassium 4.8, Chloride 94 L, Carbon Dioxide 40 H, Anion Gap 10, BUN 21, Creatinine 0.4 L, Est GFR ( Amer) > 60, Est GFR ( Non-Af Amer) > 60, Random Glucose 92, Calcium 8.3 L, Magnesium 2.0, Total Bilirubin 0.4, AST 61 H, ALT 71 H, Alkaline Phosphatase 54, Lactate Dehydrogenase 542, Total Creatine Kinase 61, Troponin I < 0.01 D, Total Protein 7.0, Albumin 3.7, Globulin 3.3, Albumin/Globulin Ratio 1.1 07/27/16 08:15: PT 11.4, INR 1.06, APTT 26.0 07/27/16 08:15: WBC 6.5, RBC 5.43, Hgb 13.3, Hct 45.1, MCV 83.1, MCH 24.5 L, MCHC 29.5 L, RDW 14.9 H, Plt Count 196, MPV 10.4, Gran % 61.0, Lymph % (Auto) 28.0, [place] % (Auto) 8.0 H, Eos % (Auto) 2.8, Baso % (Auto) 0.2, Gran # 3.96, Lymph # 1.8, [place] # 0.5, Eos # 0.2, Baso # 0.01 - RAD Interpretation Radiology Orders: 07/27/16 08:11 CHEST PORTABLE [RAD] Stat - Medication Orders Current Medication Orders: Albuterol/Ipratropium (Duoneb 3 Mg/0.5 Mg (3 Ml) Ud) 3 ml IH [id number] PRN PRN Reason: Shortness of Breath Aspirin (Ecotrin) 81 mg PO 0800 ELVIS Enoxaparin Sodium (Lovenox) 40 mg SC DAILY ELVIS PRN Reason: Protocol Pantoprazole Sodium (Protonix Ec Tab) 40 mg PO 0600,1600 ELVIS Propranolol HCl (Inderal) 20 mg PO BID [facility] - Scribe Statement The provider has reviewed the documentation as recorded by the Scribhemant Caballero training under Carlos Oneyda Provider Scribe Attestation: All medical record entries made by the Scribe were at my direction and personally dictated by me. I have reviewed the chart and agree that the record accurately reflects my personal performance of the history, physical exam, medical decision making, and the department course for this patient. I have also personally directed, reviewed, and agree with the discharge instructions and disposition. Disposition/Present on Arrival - Present on Arrival Any Indicators Present on Arrival: No History of DVT/PE: No History of Uncontrolled Diabetes: No Urinary Catheter: No History of Decub. Ulcer: No History Surgical Site Infection Following: None - Disposition Have Diagnosis and Disposition been Completed?: Yes Diagnosis: Unsteady gait, Tremor Disposition: HOSPITALIZED Disposition Time: 11:00 Condition: STABLE
[2016-07-27] MEDS ORDERED: Albuterol-Ipratrop 3 mg / 0.5 (3 ml) UD IH PRN (12:28)
[2016-07-27] MEDS: Enoxaparin 40 mg Syringe SC SCH (13:33)
[2016-07-27] MEDS ORDERED: Pneumococcal 23-Valent Vaccine IM ONE (15:06)
--- NOTE | 2016-07-27 15:18 | CARD ---
APPROVED REPORT EKG Measurement Heart [id number] <Conclusion> Normal sinus rhythm Anterior infarct, age undetermined Abnormal ECG
[2016-07-27] MEDS: POLYETHYLENE GLYCOL 3350 17 GM/Dose PACKET PO SCH (16:00)
[2016-07-27] MEDS: Pantoprazole 40 mg EC Tab PO SCH (16:01)
--- NOTE | 2016-07-27 16:46 | CP.PCM.HP ---
<Ga Meek - Last Filed: 07/27/16 16:39> History of Present Illness - History of Present Illness History of Present Illness: This is a 70 y/o female presenting with complaints of unsteady gait and lower extremity weakness. Patient was recently seen her for similar complaints and was discharged after refusing outpatient rehab. Patient notes she has nearly fallen multiple times but denies actually falling or injuring herself. Patient denies other neurological symptoms such as loss of sensation, parasthesias or pain to the lower extremities. Patient notes that she was recently on a trip to [place] where she was able to ambulate. Patient states that she is amenable to rehabilitation if that is required after admission. PMH: asthma, chronic back pain, essential tremor PSH: hysterectomy Fam hx: non-contributory Allergies: NKDA PMD: Dr. Borden Present on Admission - Present on Admission Any Indicators Present on Admission: No Review of Systems - Constitutional Constitutional: Weakness. absent: Chills, Fever, Frequent Falls, Headache - EENT Eyes: absent: Blurred Vision, Change in Vision Nose/Mouth/Throat: Sore Throat. absent: Nasal Congestion, Nasal Discharge - Cardiovascular Cardiovascular: absent: Chest Pain, Dyspnea, Edema, Palpitations, Syncope - Respiratory Respiratory: Dyspnea. absent: Cough - Gastrointestinal Gastrointestinal: absent: Abdominal Pain, Bloating, Diarrhea, Nausea, Vomiting - Genitourinary Genitourinary: absent: Dysuria, Hematuria - Musculoskeletal Musculoskeletal: absent: Back Pain, Neck Pain - Integumentary Integumentary: absent: Pruritus, Rash - Neurological Neurological: Focal Weakness, Weakness. absent: Dizziness, Numbness, Radicular Pain - Psychiatric Psychiatric: absent: Anxiety, Depression - Endocrine Endocrine: absent: Fatigue, Palpitations Past Patient History - Infectious Disease Hx of Infectious Diseases: None - Tetanus Immunizations Tetanus Immunization: Unknown - Past Medical History & Family History Past Medical History?: Yes - Past Social History Smoking Status: Never Smoked - CARDIAC Hx Cardiac Disorders: Yes Hx Hypertension: Yes - PULMONARY Hx Respiratory Disorders: Yes Hx Asthma: Yes - NEUROLOGICAL Hx Neurological Disorder: No Other/Comment: abn ct head - HEENT Hx HEENT Problems: No - RENAL Hx Chronic Kidney Disease: No - ENDOCRINE/METABOLIC Hx Endocrine Disorders: No - HEMATOLOGICAL/ONCOLOGICAL Hx Blood Disorders: No - INTEGUMENTARY Hx Dermatological Problems: Yes (MULTIPLE BROWN SPOTTING TO RIGHT THIGH AND BUTTOCKS AND BACK.) - MUSCULOSKELETAL/RHEUMATOLOGICAL Hx Musculoskeletal Disorders: Yes Hx Falls: Yes Hx Unsteady Gait: Yes Other/Comment: fx 4 transverse process L2 L3 L4, buldging disc L5 S1 - GASTROINTESTINAL Hx Gastrointestinal Disorders: Yes (CONSTIPATION) - GENITOURINARY/GYNECOLOGICAL Hx Genitourinary Disorders: No - PSYCHIATRIC Hx Psychophysiologic Disorder: No - SURGICAL HISTORY Hx Hysterectomy: Yes (1996) - ANESTHESIA Hx Anesthesia: No Hx Anesthesia Reactions: No Hx Malignant Hyperthermia: No Meds Allergies/Adverse Reactions: Allergies Allergy/AdvReac Type Severity Reaction Status Date / Time No Known Allergies Allergy Verified 07/27/16 07:55 Physical Exam - Constitutional Appears: Non-toxic, No Acute Distress - Head Exam Head Exam: ATRAUMATIC, NORMOCEPHALIC - Eye Exam Eye Exam: EOMI, PERRL - ENT Exam ENT Exam: Mucous Membranes Moist - Neck Exam Neck exam: Positive for: Full Rom, Normal Inspection - Respiratory Exam Respiratory Exam: Clear to Auscultation Bilateral. absent: Rales, Rhonchi, Wheezes - Cardiovascular Exam Cardiovascular Exam: REGULAR RHYTHM, +S1 - GI/Abdominal Exam GI & Abdominal Exam: Soft - Extremities Exam Extremities exam: Positive for: full ROM, normal inspection, pedal pulses present. Negative for: calf tenderness, pedal edema, tenderness - Back Exam Back exam: NORMAL INSPECTION - Neurological Exam Neurological exam: Alert, Oriented x3 - Psychiatric Exam Psychiatric exam: Normal Affect, Normal Mood - Skin Skin Exam: Dry, Normal Color, Warm Results - Vital Signs Recent Vital Signs: Last Vital Signs Temp 99.1 F 07/27/16 14:53 Pulse 87 07/27/16 14:53 Resp 18 07/27/16 14:53 BP 133/78 07/27/16 14:53 Pulse Ox 100 07/27/16 10:55 - Labs Result Diagrams: 07/27/16 08:15 07/27/16 08:15 Assessment & Plan - Assessment and Plan (Free Text) Assessment: 71 y/o female presenting with gait dysfunction, LE weakness. Patient is essentially seeking physical rehabilitation for this chronic problem. gait dysfunction - consult PT - case management consult - patient has undergone extensive w/u recently. extensive w/u and consultation not warranted at this point. constipation - colace 100 TID, PEG daily - regular diet hx asthma - duonebs q6resp - aspirin 81 daily hx HTN - continue Inderal PPX - protonix 40mg daily - SCDs Patient seen, discussed and examined with attending. <TobiGiovnaarasta - Last Filed: 07/27/16 18:48> Results - Vital Signs Recent Vital Signs: Last Vital Signs Temp 99.1 F 07/27/16 14:53 Pulse 87 07/27/16 14:53 Resp 18 07/27/16 14:53 BP 133/78 07/27/16 17:53 Pulse Ox 100 07/27/16 10:55 - Labs Result Diagrams: 07/27/16 08:15 07/27/16 08:15 Attending/Attestation - Attestation I have personally seen and examined this patient.: Yes I have fully participated in the care of the patient.: Yes I have reviewed all pertinent clinical information: Yes Notes (Text): 07/27/16 18:47 attending note; Patient seen examined with resident in ER. Translation by Colombian-speaking nurse. Patient is a 70 year old female presenting with complaints of unsteady gait and lower extremity weakness. Patient was recently seen her for similar complaints and was discharged after refusing outpatient rehab. Patient notes she has nearly fallen multiple times but denies actually falling or injuring herself. Patient also has chronic intentional tremors. Currently on propranolol. CT head is negative. Neuro/PT evaluation requested. Currently agreeing to go rehabilitation. Patient follows up with PMD Dr. Uriarte. 07/27/16 18:48
[2016-07-28] MEDS: Pantoprazole 40 mg EC Tab PO SCH ×2 (06:03→17:27)
--- NOTE | 2016-07-28 08:18 | CON ---
DATE: 07/27/2016 HISTORY OF PRESENT ILLNESS: This is a 71-year-old female with past medical history of asthm a, essential tremor and back pain, came to the hospital with an unsteady gait and tremors of the hand s. The patient had been to the hospital in May. The patient noted that she had multiple falls and called to evaluate the patient. PAST MEDICAL HISTORY: As above. ALLERGIES: No known drug allergy. The patient recently changed her primary doctor. PHYSICAL EXAMINATION: VITAL SIGNS: Blood pressure of 133/78. HEENT: Normocephalic, atraumatic. NECK: Supple. NEUROLOGIC: Alert, awake, oriented x 3. No aphasia. Cranial nerves II through XII were tested. Pu pils reactive. EOMs intact. Visual [place] full. No facial asymmetry. Tongue midline. Motor examin ation: Moves all the extremities spontaneously. Deep tendon reflexes 1+. Both plantars are downgoi ng. Sensory appears intact. Cerebellar, gait normal. Essential tremor and unsteady gait. LABORATORY DATA: WBC 6.5, hemoglobin 13.3, hematocrit 45.1, platelets 196. Sodium 139, potassium 4. 8, chloride 94, CO2 of 40, glucose 92, BUN 21, creatinine 0.4. IMPRESSION: A 71-year-old female with past medical history not significant, came with gait dysfunction and essential tremors. PLAN: We will do CAT scan of the head and Mysoline 50 mg p.o. daily. Jayden Dawn MD cc: [id number] TT: 07/27/2016 19:12:41 Confirmation # [id number] Dictation # [id number] [place]
--- NOTE | 2016-07-28 08:50 | CT ---
PROCEDURE: CT HEAD WITHOUT CONTRAST. HISTORY: Tremors COMPARISON: 05/14/2016. TECHNIQUE: Axial computed tomography images were obtained through the head/brain without intravenous contrast. Radiation dose: Total exam DLP = 725.84 mGy-cm. This CT exam was performed using one or more of the following dose reduction techniques: Automated exposure control, adjustment of the mA and/or kV according to patient size, and/or use of iterative reconstruction technique. FINDINGS: HEMORRHAGE: No intracranial hemorrhage. BRAIN: Angel-white matter differentiation is preserved. There is no mass, mass effect or abnormal extra-axial fluid collection. There is a round calcification in the left superior frontal cortex, nonspecific and likely related to prior infection/inflammation. VENTRICLES: There is mild age-related global parenchymal volume loss and proportionate enlargement of the ventricles and cortical sulci. CALVARIUM: The skull base and calvarium are normal. PARANASAL SINUSES: Predominantly clear. MASTOID AIR CELLS: Predominantly clear. OTHER FINDINGS: None. IMPRESSION: No acute intracranial abnormality.
[2016-07-28] MEDS: POLYETHYLENE GLYCOL 3350 17 GM/Dose PACKET PO SCH (10:01)
[2016-07-28] MEDS: Enoxaparin 40 mg Syringe SC SCH (10:02)
--- NOTE | 2016-07-28 12:49 | CP.PCM.PCO ---
Assessment & Plan - Assessment and Plan (Free Text) Assessment: NEURO COMMUNICATION NOTE: CT HEAD SHOWED NO ACUTE ABNORMALITIES. TREMORS ARE MORE ESSENTIAL TYPE. C/W MYSOLINE 50MG PO QHS AND F/U OUTPATIENT. THANK YOU SHAW GUALLPA. SIGN OFF.
--- NOTE | 2016-07-28 13:16 | CP.PCM.PN ---
<Isma Barros - Last Filed: 07/28/16 13:18> Subjective - Date & Time of Evaluation Date of Evaluation: 07/28/16 Time of Evaluation: 08:15 - Subjective Subjective: Pt was seen and examined at bedside. Pt denies any acute complaints at this time. Pt has persistent complaints of left knee pain. No acute events overnight as per nursing staff. Pt is tolerating po intake, and moving bladder regularly however has not had a bm in days. Pt denied fever, chills, sob, chest pains, abdominal pains, n/v/d/c or urinary symptoms. Objective - Vital Signs/Intake and Output Vital Signs (last 24 hours): Temp Pulse Resp BP Pulse Ox 98.2 F 82 19 133/83 95 07/28/16 09:01 07/28/16 10:01 07/28/16 09:01 07/28/16 10:01 07/28/16 09:01 Intake and Output: 07/28/16 07/28/16 06:59 18:59 Intake Total 600 240 Balance 600 240 - Medications Medications: Current Medications Albuterol/Ipratropium (Duoneb 3 Mg/0.5 Mg (3 Ml) Ud) 3 ml IH [id number] PRN PRN Reason: Shortness of Breath Aspirin (Ecotrin) 81 mg PO 0800 [facility] Last Admin: 07/28/16 10:01 Dose: 81 mg Docusate Sodium (Colace) 100 mg PO TID [facility] [place] Last Admin: 07/28/16 10:01 Dose: 100 mg Enoxaparin Sodium (Lovenox) 40 mg SC DAILY [facility] [place] PRN Reason: Protocol Last Admin: 07/28/16 10:02 Dose: 40 mg Pantoprazole Sodium (Protonix Ec Tab) 40 mg PO 0600,1600 [facility] [place] Last Admin: 07/28/16 06:03 Dose: 40 mg Polyethylene Glycol (Miralax) 17 gm PO DAILY [facility] [place] Last Admin: 07/28/16 10:01 Dose: 17 gm Primidone (Mysoline) 50 mg PO HS [facility] - Labs Labs: PT 11.4 Seconds (9.9-11.8) 07/27/16 08:15 INR 1.06 (0.93-1.08) 07/27/16 08:15 APTT 26.0 Seconds (23.7-30.8) 07/27/16 08:15 - Constitutional Appears: No Acute Distress - Head Exam Head Exam: ATRAUMATIC, NORMAL INSPECTION, NORMOCEPHALIC - Eye Exam Eye Exam: EOMI, Normal appearance, PERRL Pupil Exam: NORMAL ACCOMODATION, PERRL - ENT Exam ENT Exam: Mucous Membranes Moist, Normal Exam - Respiratory Exam Respiratory Exam: Clear to Ausculation Bilateral, NORMAL BREATHING PATTERN - Cardiovascular Exam Cardiovascular Exam: REGULAR RHYTHM, +S1, +S2. absent: Murmur - GI/Abdominal Exam GI & Abdominal Exam: Soft, Normal Bowel Sounds. absent: Tenderness - Extremities Exam Extremities Exam: Full ROM, Normal Capillary Refill, Normal Inspection. absent : Joint Swelling, Pedal Edema - Neurological Exam Neurological Exam: Alert, Awake, CN II-XII Intact, Oriented x3 - Psychiatric Exam Psychiatric exam: Normal Affect, Normal Mood - Skin Skin Exam: Dry, Intact, Normal Color, Warm Assessment and Plan - Assessment and Plan (Free Text) Assessment: 71 y/o female presenting with gait dysfunction, LE weakness. Patient is essentially seeking physical rehabilitation for this chronic problem. Patient was recently seen her for similar complaints and was discharged after refusing outpatient rehab. Patient notes she has nearly fallen multiple times but denies actually falling or injuring herself. gait dysfunction - consult PT, recommended [facility] - case management consult - patient has undergone extensive w/u recently. extensive w/u and consultation not warranted at this point. - Neurology consulted, Dr. Handy recommended mysoline 50mg po qhs and fu as outpt constipation - colace 100 TID, PEG daily - regular diet hx asthma - duonebs q6resp - aspirin 81 daily hx HTN - continue Inderal PPX - protonix 40mg daily - SCDs Patient seen, discussed and examined with Dr. Britton. PMD Dr. Burrell <Josr Britton - Last Filed: 07/28/16 16:21> Objective - Vital Signs/Intake and Output Vital Signs (last 24 hours): Temp Pulse Resp BP Pulse Ox 98.2 F 82 19 133/83 95 07/28/16 09:01 07/28/16 10:01 07/28/16 09:01 07/28/16 10:01 07/28/16 09:01 Intake and Output: 07/28/16 07/28/16 06:59 18:59 Intake Total 600 240 Balance 600 240 - Medications Medications: Current Medications Albuterol/Ipratropium (Duoneb 3 Mg/0.5 Mg (3 Ml) Ud) 3 ml IH [id number] PRN PRN Reason: Shortness of Breath Aspirin (Ecotrin) 81 mg PO 0800 [facility] [place] Last Admin: 07/28/16 10:01 Dose: 81 mg Docusate Sodium (Colace) 100 mg PO TID [facility] [place] Last Admin: 07/28/16 10:01 Dose: 100 mg Enoxaparin Sodium (Lovenox) 40 mg SC DAILY [facility] [place] PRN Reason: Protocol Last Admin: 07/28/16 10:02 Dose: 40 mg Pantoprazole Sodium (Protonix Ec Tab) 40 mg PO 0600,1600 [facility] [place] Last Admin: 07/28/16 06:03 Dose: 40 mg Polyethylene Glycol (Miralax) 17 gm PO DAILY [facility] [place] Last Admin: 07/28/16 10:01 Dose: 17 gm Primidone (Mysoline) 50 mg PO HS [facility] [place] - Labs Labs: PT 11.4 Seconds (9.9-11.8) 07/27/16 08:15 INR 1.06 (0.93-1.08) 07/27/16 08:15 APTT 26.0 Seconds (23.7-30.8) 07/27/16 08:15 Attending/Attestation - Attestation I have personally seen and examined this patient.: Yes I have fully participated in the care of the patient.: Yes I have reviewed all pertinent clinical information, including history, physical exam and plan: Yes Notes (Text): 07/28/16 16:20 attending note; Patient seen examined with resident. Translation by Urdu-speaking nurse. Patient is a 70 year old female presenting with complaints of unsteady gait and lower extremity weakness. Patient was recently seen her for similar complaints and was discharged after refusing outpatient rehab. Patient notes she has nearly fallen multiple times but denies actually falling or injuring herself. Patient also has chronic intentional tremors. neurology evaluation appreciated. Started on Mysoline. CT head is negative. PT evaluation appreciated. Recommending subacute rehab. case discussed with medical social worker for rehabilitation arrangements. Patient follows up with PMD Dr. Uriarte.
[2016-07-28] MEDS ORDERED: DiphenhydrAMINE 50 mg/ml Inj IVP ONE (21:56)
[2016-07-28] MEDS ORDERED: DiphenhydrAMINE 50 mg/ml Inj IVP STA (21:56)
[2016-07-29] MEDS: Pantoprazole 40 mg EC Tab PO SCH ×2 (05:33→05:36)
[2016-07-29 10:10] LABS: ADD MANUAL DIFF? NO
[2016-07-29 10:13] LABS: BASO # 0.01 K/mm3 (0.0-2.0); BASO % 0.1 % (0.0-3.0); EOS # 0.1 (0.0-0.7); EOS % 1.3 % (1.5-5.0); GRAN # 4.72 (1.4-6.5); GRAN % 70.1 % (50.0-68.0); HEMATOCRIT 46.6 % (36.0-48.0); LYMPH # 1.4 (1.2-3.4); LYMPH % 20.5 % (22.0-35.0); MEAN CELL VOLUME 84.4 fL (80.0-105.0); MEAN CORPUSCULAR HEMOGLOBIN 24.5 pg (25.0-35.0); MEAN PLATELET VOLUME 10.5 fl (7.0-11.0); MONO # 0.5 (0.1-0.6); PLATELET COUNT 177 10^3/uL (120.0-450.0); RED CELL DISTRIBUTION WIDTH 14.5 % (11.5-14.5); WHITE BLOOD COUNT 6.7 10^3/ul (4.5-11.0)
[2016-07-29] MEDS ORDERED: POLYETHYLENE GLYCOL 3350 17 GM/Dose PACKET ONE (10:21)
[2016-07-29 10:22] LABS: ALB/GLOB RATIO 1.2 (1.1-1.8); ALKALINE PHOSPHATASE 58 U/L (38-133); ALT/SGPT 75 U/L (7-56); AST/SGOT 39 U/L (15-39); BILIRUBIN,TOTAL 0.5 mg/dL (0.2-1.3); BLOOD UREA NITROGEN 18 mg/dL (7-21); CALCIUM 8.5 mg/dL (8.4-10.5); CARBON DIOXIDE > 40 mmol/L (21-33); CHLORIDE 90 mmol/L (95-110); GFR AFRICAN-AMERICAN > 60; GLUCOSE,RANDOM 135 mg/dL (70-110); POTASSIUM 4.2 mmol/L (3.6-5.0); SODIUM 140 mmol/L (132-148); TOTAL PROTEIN 7.2 g/dL (5.8-8.3)
[2016-07-29] MEDS ORDERED: Enoxaparin 40 mg Syringe ONE (10:25)
[2016-07-29] MEDS: Enoxaparin 40 mg Syringe SC SCH (10:32)
[2016-07-29] MEDS: POLYETHYLENE GLYCOL 3350 17 GM/Dose PACKET PO SCH (10:33)
--- NOTE | 2016-07-29 15:07 | CP.PCM.DIS ---
<Isma Barros - Last Filed: 07/29/16 17:17> Provider - Provider Date of Admission: 07/27/16 10:43 Attending physician: Josr Britton MD Primary care physician: Claritza Uriarte MD Consults: Neurology _ Dr. Handy Time Spent in preparation of Discharge (in minutes): 45 Hospital Course - Lab Results Lab Results: Most Recent Lab Values WBC 6.7 10^3/ul (4.5-11.0) 07/29/16 10:00 RBC 5.52 10^6/uL (3.5-6.1) 07/29/16 10:00 Hgb 13.5 gm/dL (12.0-16.0) 07/29/16 10:00 Hct 46.6 % (36.0-48.0) 07/29/16 10:00 MCV 84.4 fL (80.0-105.0) 07/29/16 10:00 MCH 24.5 pg (25.0-35.0) L 07/29/16 10:00 MCHC 29.0 g/dl (31.0-37.0) L 07/29/16 10:00 RDW 14.5 % (11.5-14.5) 07/29/16 10:00 Plt Count 177 10^3/uL (120.0-450.0) 07/29/16 10:00 MPV 10.5 fl (7.0-11.0) 07/29/16 10:00 Gran % 70.1 % (50.0-68.0) H 07/29/16 10:00 Lymph % (Auto) 20.5 % (22.0-35.0) L 07/29/16 10:00 Finney % (Auto) 8.0 % (1.0-6.0) H 07/29/16 10:00 Eos % (Auto) 1.3 % (1.5-5.0) L 07/29/16 10:00 Baso % (Auto) 0.1 % (0.0-3.0) 07/29/16 10:00 Gran # 4.72 (1.4-6.5) 07/29/16 10:00 Lymph # 1.4 (1.2-3.4) 07/29/16 10:00 Finney # 0.5 (0.1-0.6) 07/29/16 10:00 Eos # 0.1 (0.0-0.7) 07/29/16 10:00 Baso # 0.01 K/mm3 (0.0-2.0) 07/29/16 10:00 PT 11.4 Seconds (9.9-11.8) 07/27/16 08:15 INR 1.06 (0.93-1.08) 07/27/16 08:15 APTT 26.0 Seconds (23.7-30.8) 07/27/16 08:15 Sodium 140 mmol/L (132-148) 07/29/16 10:00 Potassium 4.2 mmol/L (3.6-5.0) 07/29/16 10:00 Chloride 90 mmol/L (95-110) L 07/29/16 10:00 Carbon Dioxide > 40 mmol/L (21-33) H 07/29/16 10:00 Anion Gap 14 (10-20) 07/29/16 10:00 BUN 18 mg/dL (7-21) 07/29/16 10:00 Creatinine 0.5 mg/dL (0.5-1.4) 07/29/16 10:00 Est GFR ( Amer) > 60 07/29/16 10:00 Est GFR (Non-Af Amer) > 60 07/29/16 10:00 Random Glucose 135 mg/dL (70-110) H 07/29/16 10:00 Calcium 8.5 mg/dL (8.4-10.5) 07/29/16 10:00 Magnesium 2.0 mg/dL (1.7-2.2) 07/27/16 08:15 Total Bilirubin 0.5 mg/dL (0.2-1.3) 07/29/16 10:00 AST 39 U/L (15-39) 07/29/16 10:00 ALT 75 U/L (7-56) H 07/29/16 10:00 Alkaline Phosphatase 58 U/L (38-133) 07/29/16 10:00 Lactate Dehydrogenase 542 U/L (333-699) 07/27/16 08:15 Total Creatine Kinase 61 U/L (35-230) 07/27/16 08:15 Troponin I < 0.01 ng/mL D 07/27/16 08:15 NT-Pro-B Natriuret Pep 405 pg/mL (0-450) 07/27/16 10:09 Total Protein 7.2 g/dL (5.8-8.3) 07/29/16 10:00 Albumin 3.9 g/dL (3.0-4.8) 07/29/16 10:00 Globulin 3.3 gm/dL 07/29/16 10:00 Albumin/Globulin Ratio 1.2 (1.1-1.8) 07/29/16 10:00 Urine Color Yellow (YELLOW) 07/27/16 09:00 Urine Appearance Clear (CLEAR) 07/27/16 09:00 Urine pH 6.0 (4.7-8.0) 07/27/16 09:00 Ur Specific Harvey 1.020 (1.005-1.035) 07/27/16 09:00 Urine Protein Negative mg/dL (<30 mg/dL) 07/27/16 09:00 Urine Glucose (UA) Negative mg/dL (NEGATIVE) 07/27/16 09:00 Urine Ketones Negative mg/dL (NEGATIVE) 07/27/16 09:00 Urine Blood Small (NEGATIVE) H 07/27/16 09:00 Urine Nitrate Negative (NEGATIVE) 07/27/16 09:00 Urine Bilirubin Negative (NEGATIVE) 07/27/16 09:00 Urine Urobilinogen 0.2 E.U./dL (<1 E.U./dL) 07/27/16 09:00 Ur Leukocyte Esterase Trace Payal/uL (NEGATIVE) H 07/27/16 09:00 Urine RBC 1 - 3 /hpf (0-2) 07/27/16 09:00 Urine WBC 0 - 2 /hpf (0-6) 07/27/16 09:00 Ur Epithelial Cells 0 - 2 /hpf (0-5) 07/27/16 09:00 Urine Bacteria Trace (NEG) 07/27/16 09:00 - Hospital Course Hospital Course: 70 F with PMHx of back pain, old fractures in the lumbar spine is admitted with tremors, unsteady gait and falls with lower extremity pain and weakness. Patient was recently hospitalized for similar complaints and was discharged after refusing outpatient rehab. Patient notes she has nearly fallen multiple times but denies actually falling or injuring herself. Patient has chronic intentional tremors. Currently on propranolol. CT head was performed and resulted negative for any intracranial pathology. Neurology was consulted and recommended changing propanolol to mysoline. Pt has persistent complaints of left knee pain. No acute events overnight as per nursing staff. Pt is tolerating po intake, and moving bladder regularly however has not had a bm in days. Laxitives and stool softeners were administered and pt did move her bowels. Pt was consulted to evaluate pt for unsteady gait. Pt recommended subacute rehab. Case discussed with social welfare clerk for rehabilitation arrangements. Pt is for [facility] placement today. Pt is to fu with PMD Dr. Uriarte. Discharge Exam - Head Exam Head Exam: ATRAUMATIC, NORMAL INSPECTION, NORMOCEPHALIC - Eye Exam Eye Exam: EOMI, Normal appearance, PERRL Pupil Exam: NORMAL ACCOMODATION, PERRL - ENT Exam ENT Exam: Mucous Membranes Moist - Respiratory Exam Respiratory Exam: Clear to PA & Lateral, NORMAL BREATHING PATTERN, UNREMARKABLE - Cardiovascular Exam Cardiovascular Exam: RRR, +S1, +S2 - GI/Abdominal Exam GI & Abdominal Exam: Normal Bowel Sounds - Extremities Exam Extremities exam: normal inspection - Back Exam Back exam: NORMAL INSPECTION - Neurological Exam Neurological exam: Alert, CN II-XII Intact, Normal Gait, Oriented x3, Reflexes Normal - Psychiatric Exam Psychiatric exam: Normal Affect, Normal Mood - Skin Skin Exam: Dry, Intact, Normal Color, Warm Discharge Plan - Discharge Medications Prescriptions: Aspirin [Ecotrin] 81 mg PO 0800 #30 Docusate [Colace] 100 mg PO TID #30 cap Pantoprazole [Protonix EC Tab] 40 mg PO 0600,1600 #20 ect Polyethylene Glycol 3350 [Miralax] 17 gm PO DAILY #10 packet Primidone [Mysoline] 50 mg PO HS #30 tab Zolpidem [Ambien] 5 mg PO HS PRN #5 tab PRN Reason: Insomnia - Follow Up Plan Condition: STABLE Disposition: HOME/ ROUTINE Instructions: Heart Failure (DC), Heart Failure (GEN), Pacemaker (DC), Pacemaker (GEN), Pulmonary Edema (DC), Pulmonary Edema (GEN), Ascites (DC), Ascites (GEN), Back Pain (GEN), Tremors (DC) Additional Instructions: 1. Pt is to continue management at [facility] 2. Pt is to FU with PMD Dr. Uriarte within 3-5 days 3. Pt welcomed to return to [facility] if symptoms change or worsen. Referrals: Claritza Uriarte MD [Primary Care Provider] - <Luis GUALLPA,[facility] - Last Filed: 07/29/16 17:25> Provider - Provider Date of Admission: 07/27/16 10:43 Attending physician: Josr Britton MD Primary care physician: Claritza Uriarte MD Hospital Course - Lab Results Lab Results: Most Recent Lab Values WBC 6.7 10^3/ul (4.5-11.0) 07/29/16 10:00 RBC 5.52 10^6/uL (3.5-6.1) 07/29/16 10:00 Hgb 13.5 gm/dL (12.0-16.0) 07/29/16 10:00 Hct 46.6 % (36.0-48.0) 07/29/16 10:00 MCV 84.4 fL (80.0-105.0) 07/29/16 10:00 MCH 24.5 pg (25.0-35.0) L 07/29/16 10:00 MCHC 29.0 g/dl (31.0-37.0) L 07/29/16 10:00 RDW 14.5 % (11.5-14.5) 07/29/16 10:00 Plt Count 177 10^3/uL (120.0-450.0) 07/29/16 10:00 MPV 10.5 fl (7.0-11.0) 07/29/16 10:00 Gran % 70.1 % (50.0-68.0) H 07/29/16 10:00 Lymph % (Auto) 20.5 % (22.0-35.0) L 07/29/16 10:00 Finney % (Auto) 8.0 % (1.0-6.0) H 07/29/16 10:00 Eos % (Auto) 1.3 % (1.5-5.0) L 07/29/16 10:00 Baso % (Auto) 0.1 % (0.0-3.0) 07/29/16 10:00 Gran # 4.72 (1.4-6.5) 07/29/16 10:00 Lymph # 1.4 (1.2-3.4) 07/29/16 10:00 Finney # 0.5 (0.1-0.6) 07/29/16 10:00 Eos # 0.1 (0.0-0.7) 07/29/16 10:00 Baso # 0.01 K/mm3 (0.0-2.0) 07/29/16 10:00 PT 11.4 Seconds (9.9-11.8) 07/27/16 08:15 INR 1.06 (0.93-1.08) 07/27/16 08:15 APTT 26.0 Seconds (23.7-30.8) 07/27/16 08:15 Sodium 140 mmol/L (132-148) 07/29/16 10:00 Potassium 4.2 mmol/L (3.6-5.0) 07/29/16 10:00 Chloride 90 mmol/L (95-110) L 07/29/16 10:00 Carbon Dioxide > 40 mmol/L (21-33) H 07/29/16 10:00 Anion Gap 14 (10-20) 07/29/16 10:00 BUN 18 mg/dL (7-21) 07/29/16 10:00 Creatinine 0.5 mg/dL (0.5-1.4) 07/29/16 10:00 Est GFR ( Amer) > 60 07/29/16 10:00 Est GFR (Non-Af Amer) > 60 07/29/16 10:00 Random Glucose 135 mg/dL (70-110) H 07/29/16 10:00 Calcium 8.5 mg/dL (8.4-10.5) 07/29/16 10:00 Magnesium 2.0 mg/dL (1.7-2.2) 07/27/16 08:15 Total Bilirubin 0.5 mg/dL (0.2-1.3) 07/29/16 10:00 AST 39 U/L (15-39) 07/29/16 10:00 ALT 75 U/L (7-56) H 07/29/16 10:00 Alkaline Phosphatase 58 U/L (38-133) 07/29/16 10:00 Lactate Dehydrogenase 542 U/L (333-699) 07/27/16 08:15 Total Creatine Kinase 61 U/L (35-230) 07/27/16 08:15 Troponin I < 0.01 ng/mL D 07/27/16 08:15 NT-Pro-B Natriuret Pep 405 pg/mL (0-450) 07/27/16 10:09 Total Protein 7.2 g/dL (5.8-8.3) 07/29/16 10:00 Albumin 3.9 g/dL (3.0-4.8) 07/29/16 10:00 Globulin 3.3 gm/dL 07/29/16 10:00 Albumin/Globulin Ratio 1.2 (1.1-1.8) 07/29/16 10:00 Urine Color Yellow (YELLOW) 07/27/16 09:00 Urine Appearance Clear (CLEAR) 07/27/16 09:00 Urine pH 6.0 (4.7-8.0) 07/27/16 09:00 Ur Specific Harvey 1.020 (1.005-1.035) 07/27/16 09:00 Urine Protein Negative mg/dL (<30 mg/dL) 07/27/16 09:00 Urine Glucose (UA) Negative mg/dL (NEGATIVE) 07/27/16 09:00 Urine Ketones Negative mg/dL (NEGATIVE) 07/27/16 09:00 Urine Blood Small (NEGATIVE) H 07/27/16 09:00 Urine Nitrate Negative (NEGATIVE) 07/27/16 09:00 Urine Bilirubin Negative (NEGATIVE) 07/27/16 09:00 Urine Urobilinogen 0.2 E.U./dL (<1 E.U./dL) 07/27/16 09:00 Ur Leukocyte Esterase Trace Payal/uL (NEGATIVE) H 07/27/16 09:00 Urine RBC 1 - 3 /hpf (0-2) 07/27/16 09:00 Urine WBC 0 - 2 /hpf (0-6) 07/27/16 09:00 Ur Epithelial Cells 0 - 2 /hpf (0-5) 07/27/16 09:00 Urine Bacteria Trace (NEG) 07/27/16 09:00 Attending/Attestation - Attestation I have personally seen and examined this patient.: Yes I have fully participated in the care of the patient.: Yes I have reviewed all pertinent clinical information, including history, physical exam and plan: Yes Notes (Text): 07/29/16 17:23 Patient was seen and examined with dental assistant medical assistant. 70 F with PMHx of back pain, old fractures in the lumbar spine is admitted with tremors, unsteady gait and falls with lower extremity pain and weakness.CT head was negative.Patient was evaluated by Neurology and was started on Primidone .Patient was evaluated by PT,[facility] was recommended.Patient is agreeable to go to Rehab.She will be discharged home and will follow up with PCP.
[2016-07-29 18:40] VITALS: BP 124/66; PULSE 98; RESP 20; TEMP 98.2; O2SAT 97
== END 2016-07-29 19:01 | DRG 35 ==
LOC: ED 07:43 → ERH 10:43 → 3RSO 11:29
PROVIDERS: ADMIT Internal Medicine; ATTEND Internal Medicine
DX: G25.0 Essential tremor (principal); R26.81 Unsteadiness on feet; R53.1 Weakness; I10 Essential (primary) hypertension; G89.29 Other chronic pain; J45.909 Unspecified asthma, uncomplicated; M54.9 Dorsalgia, unspecified; K59.00 Constipation, unspecified; M25.562 Pain in left knee; Z90.710 Acquired absence of both cervix and uterus